=== PATIENT | female | born 1955 | race African-American/Black ===

== ENCOUNTER → 2017-01-16 | Outpatient (CLI) | payer OTHER ==
[~2017-01-16] MED LIST: ATORVASTATIN; ZOLOFT
== END | disposition home or self-care (01) ==
LOC: HKI 11:01
PROVIDERS: ATTEND Orthopaedic Surgery
DX: Z01.818 Encounter for other preprocedural examination (principal); M16.0 Bilateral primary osteoarthritis of hip; M25.551 Pain in right hip; M25.552 Pain in left hip
CPT/HCPCS: G0463

== ENCOUNTER 2017-01-19 06:13 | Inpatient (IN) | payer OTHER ==
[~2017-01-19] VITALS: Ht 157.5 cm; Wt 81.5 kg
[2017-01-19] VITALS (31 sets, daily range): BP systolic 96–138; BP diastolic 59–76; PULSE 51–76; RESP 12–28; Ht 157.5 cm; Wt 81.5 kg
[~2017-01-19 06:13] MED LIST changes: -ATORVASTATIN; +BUPIVACAINE LIPOSOME/PF 266 MG/20 ML VIAL INFIL ONE; +CEFAZOLIN 2GM/50 ML (PMX) 50 ML X1 BEFORE INCISION IVPB ONE; +CELECOXIB 400 MG PO X1 DOSE PO ONE; +LACTATED RINGER'S 1,000 ML IV SCH; +PAIN COCKTAIL-CEFUROXIME IRR ONE; +PREGABALIN 300 MG PO X1 PO ONE; +TRANEXAMIC ACID 810 MG in SOD CHLORIDE 0.9% 100 ML IVPB ONE; +TRANEXAMIC ACID 810 MG in SOD CHLORIDE 0.9% 91.9 ML IV ONE; -ZOLOFT; +oxyCODONE (CR) 10 MG TAB [oxyCONTIN] X1 DOSE PO ONE; +traMADOL 50 MG TAB X 1 DOSE PO ONE
[2017-01-19] MEDS ORDERED: PROPOFOL 100 ML ONE ×2 (06:55→11:58)
[2017-01-19] MEDS ORDERED: CEFAZOLIN 1 GM INJ ONE (06:55)
[2017-01-19] MEDS ORDERED: DEXAMETHASONE 4 MG/ML 1 ML INJ ONE (06:56)
[2017-01-19] MEDS ORDERED: FENTAnyl 50 MCG/ML VIAL ONE (06:56)
[2017-01-19] MEDS ORDERED: METOCLOPRAMIDE 10 MG INJ ONE (06:56)
[2017-01-19] MEDS ORDERED: MIDAZOLAM 1 MG/ML 2 ML INJ ONE (06:56)
--- NOTE | 2017-01-19 07:19 | HPN ---
Date/Time of Note Date/Time of Note DATE: 01/19/17 TIME: 07:18 Interval H&P Admission Note Pt. seen H&P reviewed: No system changes No change from H&P on 01/12/17 by ADDIE Clark ERIK N. MD Jan 19, 2017 07:19
[2017-01-19] MEDS ORDERED: ZOLOFT (07:48)
[2017-01-19] MEDS ORDERED: ATORVASTATIN (07:48)
[2017-01-19] MEDS ORDERED: LIDOCAINE 2% (SDV) 5 ML INJ ONE (07:55)
[2017-01-19] MEDS ORDERED: EPHEDrine SULFATE 50 MG/5 ML SYG ONE (07:55)
[2017-01-19] MEDS ORDERED: SODIUM CL BACTERIOSTATIC 30 ML INJ ONE (07:57)
[2017-01-19] MEDS ORDERED: VANCOMYCIN 1 GM INJ ONE (07:57)
[2017-01-19] MEDS ORDERED: POLYMYXIN B 500000 UNIT INJ ONE (07:57)
[2017-01-19] MEDS ORDERED: MAGNESIUM SULFATE 1 GM/D5W 100 ML ONE (08:04)
[2017-01-19] MEDS ORDERED: BACITRACIN 50000 UNITS INJ IRR ONE (08:47)
[2017-01-19] MEDS ORDERED: EXPAREL NOTE (BUPIVICAINE LIPOSOMAL) XX SCH (09:00)
--- NOTE | 2017-01-19 10:24 | OPPN ---
Date/Time of Note Date/Time of Note DATE: 01/19/17 TIME: 10:22 Operative/Procedure Note Dictation # [id number] Pre-Operative Diagnosis Left Hip OA Post-Operative Diagnosis Same Procedure Left Anterior DOREEN Surgeon: NELIA ESPARZA MD Mastic Man: RANJANA MICHAUD PA-C Anesthesiologist: GIULIANA ZHU MD Findings Severe OA Blood Usage/Administration None Implants/Grafts Depuy DOREEN Estimated blood loss: other Drains Hemovac x 1 Specimens Femoral Head Complications: None Anesthesia type: spinal NELIA ESPARZA MD Jan 19, 2017 10:24
--- NOTE | 2017-01-19 10:24 | RADRPT ---
PROCEDURE: Left hip x-rays series CLINICAL INDICATION: Arthroplasty TECHNIQUE: 13 inches obtained intraoperatively during a hip arthroplasty procedure. COMPARISON: None available FINDINGS: 13 x-ray images were obtained intraoperatively for localization during a hip hemiarthroplasty. 48 s econds of fluoroscopy time was utilized by the physician Dr. Paulino. Left total hip replacement in lelo juárez. No fracture identified IMPRESSION: 13 images and 48 seconds of fluoroscopy time views intraoperatively for localization during a left t otal hip replacement. Unremarkable left total hip replacement .Fernando Lizarraga MD, Date Time Electronically viewed and signed by .Fernando Lizarraga MD, on 01/19/2017 10:24 .B/
--- NOTE | 2017-01-19 10:25 | PN ---
Date/Time of Note Date/Time of Note DATE: 01/19/17 TIME: 10:22 Assessment/Plan Lines/Catheters IV Catheter Type (from Nrsg): Peripheral IV Assessment/Plan Assessment/Plan Stable in PACU, s/p left anterior DOREEN -continue abx -pain meds as needed -ASA/SCDs for DVT prophylaxis -continue home meds -OOB with PT -check AM labs -monitor drain -d/c pollard in AM XR of the left hip is pending at this time Subjective 24 Hr Interval Summary Doing well in PACU. Complaining of mild pain. Moving all extremities. Exam/Review of Systems Vital Signs Vitals Vital Signs Date Time Temp Pulse Resp B/P Pulse Ox O2 Delivery O2 Flow Rate FiO2 01/19/17 10:16 98.2 01/19/17 06:30 65 18 118/65 100 Exam Free Text/Dictation Dressing dry Incision clean, dry, and intact without redness or drainage 5/5 Quadriceps, Tibialis Anterior, EHL, Gastroc, Soleus, Peroneals Normal sensation Palpable DT/PT, CR <2 sec No distal edema RANJANA MICHAUD PA-C Jan 19, 2017 10:25
[2017-01-19] MEDS ORDERED: METOCLOPRAMIDE 10 MG INJ IV PRN (10:30)
[2017-01-19] MEDS ORDERED: DIPHENHYDRAMINE 50 MG INJ IV PRN (10:30)
[2017-01-19] MEDS ORDERED: ONDANSETRON 4 MG INJ IV PRN ×2 (10:30→13:00)
[2017-01-19] MEDS ORDERED: MEPERIDINE 25 MG INJ IV PRN (10:30)
[2017-01-19] MEDS ORDERED: ASPIRIN (EC) 325 MG TAB PO ONE (10:30)
[2017-01-19] MEDS ORDERED: MAGNESIUM HYDROXIDE 30ML CUP PO PRN (10:30)
[2017-01-19] MEDS ORDERED: NA PHOSPHATE/BIPHOS 133 ML ENEMA PR PRN (10:30)
[2017-01-19] MEDS ORDERED: MIDAZOLAM 1 MG/ML 2 ML INJ IV PRN (10:30)
[2017-01-19] MEDS ORDERED: BISACODYL 10 MG SUPP PR PRN (10:30)
[2017-01-19] MEDS ORDERED: NACL 0.9% 3 ML SYG IV SCH (10:30)
[2017-01-19] MEDS ORDERED: HYDROmorphONE (0.2 MG/ML) 10ML SYG IV PRN ×3 (10:30)
[2017-01-19 10:42] LABS: HEMATOCRIT 32.5 % (37.0-47.0); HEMOGLOBIN 10.3 g/dl (12.0-16.0)
[2017-01-19 10:52] LABS: CREATININE 0.77 mg/dl (0.44-1.00); POTASSIUM 4.2 mmol/L (3.5-5.1)
[2017-01-19 11:04] LABS: CALCIUM 8.7 mg/dl (8.4-10.2)
[2017-01-19] MEDS: CEFAZOLIN 2 GM/50 ML (PMX) 50 ML IVPB SCH ×2 (11:04→18:48)
--- NOTE | 2017-01-19 11:08 | OPR ---
DATE OF OPERATION: 01/19/2017 PREOPERATIVE DIAGNOSIS: Left hip osteoarthritis. POSTOPERATIVE DIAGNOSIS: Left hip osteoarthritis. OPERATION PERFORMED: Left anterior total hip arthroplasty. SURGEON: Nelia Paulino MD WIRELESS RETAIL MANAGER: ADDIE Gordon COMPONENTS USED: DePuy size 48 mm Gription Montgomery cup, 48/32 neutral AltrX polyethylene liner, size 5 high offset Actis stem, 32+1 ceramic head. ANESTHESIA: Spinal plus general endotracheal intubation plus periarticular injection. ANESTHESIOLOGIST: Dr. Lee ESTIMATED BLOOD LOSS: 400 mL. INTRAVENOUS FLUIDS: 2200 mL Crystalloid. SPECIMENS: Femoral head. DRAINS: Hemovac x1. COMPLICATIONS: None. DISPOSITION: Patient tolerated the procedure well and was taken to the recovery room in stable condition. INDICATIONS: The patient is a 61-year-old woman who has had progressive worsening pain in both hips with radiographic evidence of severe bilateral hip osteoarthritis. She has failed nonsurgical means of treatment to control her pain including activity modifications, pain medications and ambulatory assist devices. Despite these measures, she has had worsening pain and I felt she would benefit from a total hip arthroplasty through an anterior approach. The risks, benefits, and alternatives of the procedure were explained in detail to the patient. I explained the risks of the surgery to include, but not be limited to: bleeding and possible need for blood transfusion; infection; pain; stiffness; neurovascular injury with possible numbness, weakness, and/or paralysis anywhere from the hip down to the toes; fracture; instability; dislocation; leg length inequality; wear and/or loosening of the prosthesis and possible need for future revision; blood clots; pulmonary embolism; and anesthetic complications such as heart attack, stroke, GI bleed, pneumonia, and/ or . Ample time was allowed for the patient to ask questions, all of which were addressed and answered. The patient understood the risks involved and wished to proceed. Informed consent was signed prior to the procedure. PROCEDURE: The patient's left hip was initialed with a marking pen in the preoperative area to identify the correct operative site. The patient was brought to the operating room and transferred from the [facility] to the [facility] where a spinal anesthetic was administered. The patient was then anesthetized and intubated. A Lugo catheter was placed. Both feet were placed into well padded boots, which were then placed into the leg holders of the traction booms. A timeout was performed to confirm that the left side was the correct operative site. The patient was given 2 g of intravenous Ancef within one hour prior to the procedure. The operative hip was prepped and draped in the usual sterile fashion. A 10 cm oblique incision was made over the anterior aspect of the hip and carried down through subcutaneous tissue and fat with sharp dissection. The tensor fascia sedrick was incised along the length of the wound. The tensor fascia muscle was retracted laterally and the sartorius medially. The anterior circumflex vessels were identified and tied off with 2-0 silk suture and coagulated with the Tissue Link polishing wheel setter. The rectus femoris was elevated off the anterior capsule and an anterior capsulectomy performed. A femoral neck osteotomy was made and the head removed from the acetabulum. The acetabulum was denuded of cartilage circumferentially, as was the femoral head. Retractors were placed around the acetabulum. The remnants of the labrum and ligamentum teres were excised. I reamed the acetabulum to the medial wall and then went into an anatomic position and increased the reamer size in 2 mm increments until I got a good bite and was down to bleeding subchondral bone. The Montgomery cup was opened and impacted into the acetabulum and sat flush circumferentially, getting a good bite. C-arm imaging showed it had about 40 to 45 degrees of abduction and 20 degrees of anteversion. The real liner was opened and impacted into the acetabulum and sat flush circumferentially. Attention was turned towards the femur. The operative leg was carefully lowered to the floor with the leg adducted. The foot was then externally rotated to approximately 110 degrees. A posteromedial release was performed to optimize exposure. The femoral hook was placed underneath the proximal femur and the hydraulic lift was then used to elevate the femur up out of the wound. The cookie cutter osteotome was used to remove the remaining overhanging greater trochanter. The femur was then broached, going up in one size increments until it sat flush with the neck cut and a stable fit was achieved. The trial neck and head were assembled and reduced into the acetabulum. Fluoroscopic imaging showed the components to be in good position and the leg lengths and offsets to be equal. At this point, the trial was dislocated and the trial broach removed. The canal was irrigated and dried. The real stem was opened and impacted into the femur. The trunnion was irrigated and dried, and the real femoral head was impacted onto the trunnion, and reduced into the acetabulum. The soft tissues were infiltrated with a mixture of 150 mg of 0.5% Bupivacaine, 8 mg of Duramorph, 300 mcg of epinephrine, 30 mg of Toradol, 100 mcg of clonidine, 750 mg of cefuroxime and 86 mL of normal saline, followed by an injection of 266 mg of liposomal Bupivacaine. At this point the hip was irrigated with a mixture of betadine/saline and then antibiotic saline with pulsatile lavage. A Hemovac drain was placed in the deep portion of the wound and brought out the anterolateral thigh. There was good hemostasis. The tensor fascia sedrick was repaired with a running #1 Vicryl. The deep fat layer was irrigated and closed with 2-0 Stratafix and the subcutaneous layer closed with 3 -0 Vicryl and the skin was closed with alex. The drain was secured with 3-0 nylon. The sponge and needle counts were correct at the end of the case. The wound was covered with an occlusive dressing. The patient was awakened, extubated, and taken to the recovery room in stable condition. Dictated By: NELIA VELEZ/LESLIE Conf#: [id number] DID#: [id number] MTDD
--- NOTE | 2017-01-19 11:17 | RADRPT ---
PROCEDURE: XR Pelvis. CLINICAL INDICATION: Postop left hip TECHNIQUE: Single AP view of the pelvis. COMPARISON: 01/30/2017. FINDINGS: There has been placement of a left hip arthroplasty. The prosthesis is well seated, anatomically al igned and positioned. There is no radiographic evidence of loosening. There is a surgical drain la terally. There is a Lugo catheter in the urinary bladder. IMPRESSION: 1. Postop left hip surgery. No hardware complication appreciated. RPTAT:AACC Physician Benito Date Time Electronically viewed and signed by Santana Rouse Physician on 01/19/2017 11:17 /
--- NOTE | 2017-01-19 11:18 | RADRPT ---
PROCEDURE: XR Hip. CLINICAL INDICATION: Status post left hip prosthesis. Postop. Follow-up TECHNIQUE: Single AP view of the left hip was performed. COMPARISON: 01/19/2017. FINDINGS: Left hip prosthesis is identified. Alignment is anatomic. No fracture or loosening or hardware soraya lure is seen. Postsurgical changes are identified. Gas is seen within the joint space and surround ing soft tissues, as expected. There is a surgical drain present. There is a vertical line of skin alex laterally. IMPRESSION: 1. Satisfactory postop appearances, status post left hip prosthesis placement, in anatomic alignmen t. RPTAT: AACC Physician Benito Date Time Electronically viewed and signed by Physician Benito on 01/19/2017 11:18 /
[2017-01-19] MEDS: ACETAMINOPHEN 1000MG/100ML IV 100 ML IVPB SCH ×3 (12:27→23:34)
[2017-01-19] MEDS: LACTATED RINGER'S 1,000 ML IV SCH ×3 (12:27→23:34)
[2017-01-19] MEDS ORDERED: HYDROmorphONE 1 MG/ML SYG IV PRN (12:30)
[2017-01-19] MEDS ORDERED: DIPHENHYDRAMINE 25 MG CAP PO PRN (12:30)
[2017-01-19] MEDS ORDERED: oxyCODONE 5 MG TAB PO PRN (12:30)
[2017-01-19] MEDS ORDERED: TRANEXAMIC ACID 820 MG in SOD CHLORIDE 0.9% 100 ML IVPB ONE ×2 (13:30→16:30)
[2017-01-19] MEDS: traMADol 50 MG TAB PO SCH ×3 (13:35→23:34)
[2017-01-19] MEDS ORDERED: BACITRACIN 50000 UNITS INJ ONE (14:58)
--- NOTE | 2017-01-19 16:00 | CONS ---
DATE OF ADMISSION: 01/19/2017 DATE OF CONSULTATION: 01/19/2017 PHYSICIAN REQUESTING CONSULT: Dr. Germain Anderson. REASON FOR CONSULTATION: Medical management postoperatively. HISTORY OF PRESENT ILLNESS: This is a very pleasant 61-year-old -[place] female with past m edical history of depression, dyslipidemia, and left hip pain and has had progressive worsening pain in both hips with ____ evidence of severe bilateral hip osteoarthritis. The patient has failed non surgical means of treatment to control her pain including activity modification, pain medication and ambulatory assist device. Despite this measure, the patient has had worsening of the pain in her l eft and patient was seen and evaluated by orthopedic surgeon and it was felt that this patient would benefit from total hip arthroplasty. After discussing the risks and benefits of the surgery and th e treatment, the patient decided to proceed with surgical intervention. On 01/19/2017, patient was admitted to [facility] for elective left anterior total hip arthroplasty. After s igning consent, the patient was taken to OR under spinal plus general endotracheal intubation plus p eriarticular injection. The patient had a left anterior total hip arthroplasty with estimated blood loss of 400 mL ____and femoral head complications. Patient was taken to recovery room and has been admitted to med/surg for further evaluation and treatment and medical team was consulted for furthe r evaluation. At this time, the patient denies having any chest pain, shortness of breath, nausea, vomiting, diarrhea. No headache, dizziness, lightheadedness. No change in visual acuity, diplopia, photophobia. No abdominal pain. No dysuria, hematuria, urgency, incontinence or any other discomf ort. PAST MEDICAL AND SURGICAL HISTORY: 1. Depression. 2. Dyslipidemia. 3. Osteoarthritis bilateral hip. MEDICATIONS: 1. Lipitor. 2. Zoloft. ALLERGIES: 1. DIVALPROEX. 2. HALOPERIDOL. 3. PHENOBARBITAL. SOCIAL HISTORY: Positive for current daily smoker, alcohol rarely. No illicit drugs. FAMILY HISTORY: Noncontributory. REVIEW OF SYSTEMS: As above per HPI, otherwise 12 review of systems have been found to be negative. PHYSICAL EXAMINATION: VITAL SIGNS: Temperature 97.0, pulse 54, respirations 16, blood pressure 110/70, oxygen saturation 98% in room air. GENERAL APPEARANCE: The patient is lying in bed comfortably without any distress. He is awake, enrico rt, oriented. He is able to answer my questions properly. Body habitus is mildly overweight with B NJ of 32.9. EYES AND ENT: Conjunctivae and lids are normal. Pupils are normal. Extraocular normal. Hearing g rossly normal. Lips are normal. Oral mucosa is moist. NECK: Supple. Trachea is midline. No lymphadenopathy. RESPIRATORY: Respiratory effort is normal. Clear to auscultate bilaterally. CARDIOVASCULAR: Normal S1, S2. Regular rhythm and rate. No murmur, no bruits, no edema. Peripher al pulses, radial pulses palpable. Cap refill is normal. CHEST: Normal expansion of thorax during inspiration. GASTROINTESTINAL: Abdomen is soft, nontender, not distended. Bowel sounds present. No guarding, n o rebound. GENITOURINARY: Deferred. MUSCULOSKELETAL: Upper extremity within normal limits. Right lower extremity within normal limits. Left lower extremity: The patient is status post left hip arthroplasty. Surgical site is dry and clean. Drain is in place and intact. NEUROLOGIC: Cranial nerves II through XII are grossly intact. PSYCHIATRIC: She is awake, alert. LABORATORY WORK: Hemoglobin 10.3, hematocrit 32.5. ASSESSMENT AND PLAN: 1. Left hip osteoarthritis. The patient is status post left anterior total hip arthroplasty. Cont inue pain medication post-surgical care. PT, OT evaluate and treat. The patient has been placed on aspirin for deep venous thrombosis prophylaxis. 2. Dyslipidemia. Continue statin. 3. Depression. Continue Zoloft. 4. For deep venous thrombosis prophylaxis, on aspirin as per orthopedic surgery. 5. Gastrointestinal prophylaxis, on proton pump inhibitor. 6. We will continue to monitor patient closely. Further recommendations, management and treatment as per clinical course. Dictated By: KEANU SALAZAR/LESLIE Conf#: [id number] DID#: [id number]
[2017-01-19] MEDS: PANTOPRAZOLE (EC) 40 MG TAB PO SCH (17:48)
[2017-01-19] MEDS: DOCUSATE SODIUM 100 MG CAP PO SCH (20:15)
[2017-01-19] MEDS: ATORVASTATIN 10 MG TAB PO SCH (20:16)
[2017-01-20] MEDS: LACTATED RINGER'S 1,000 ML IV SCH ×2 (02:08→10:08)
[2017-01-20] MEDS: CEFAZOLIN 2 GM/50 ML (PMX) 50 ML IVPB SCH (02:38)
[2017-01-20 05:46] LABS: HEMATOCRIT 27.4 % (37.0-47.0); HEMOGLOBIN 8.7 g/dl (12.0-16.0)
[2017-01-20] MEDS: PANTOPRAZOLE (EC) 40 MG TAB PO SCH ×2 (05:56→18:19)
[2017-01-20] MEDS: traMADol 50 MG TAB PO SCH ×3 (05:56→18:19)
[2017-01-20] MEDS: ACETAMINOPHEN 1000MG/100ML IV 100 ML IVPB SCH (05:56)
[2017-01-20 05:57] LABS: CREATININE 0.82 mg/dl (0.44-1.00)
[2017-01-20 05:58] LABS: CALCIUM 8.3 mg/dl (8.4-10.2)
--- NOTE | 2017-01-20 07:28 | PDOCDIS ---
Discharge Instructions DIAGNOSIS Discharge Diagnosis: s/p left anterior DOREEN CONDITION Patient Condition: Good HOME CARE INSTRUCTIONS: Diet Instructions: Regular ACTIVITY: Activity Restrictions: Slowly Increase Activity Rest between Activity Avoid heavy lifting Do not operate Machinery Do not operate Power Tool Avoid Heavy Housework Keep Limb Elevated Bathing Restrictions: Shower FOLLOW UP/APPOINTMENTS Appointments follow up in the office on 01/30/17 OTHER ORDERS: Other Orders: S/P Anterior DOREEN Physical Therapy: Three times per week at home x 2 weeks Daily in Rehab/SNF WB STATUS: WBAT Strengthening exercises for both upper and un-operated lower extremities. 1. Gait training with front wheeled walker 2. Wide base gait, no pivot turns. 3. Abductor strengthening. 4. Quadriceps and hamstring strengthening. 5. May switch to cane in contra lateral hand 6 weeks after surgery. 6. Physical Therapy can open case if nursing is not available. 7. Ice Packs while at rest to surgical wound for 20 minutes, 3 times/day. 8. Patient requires mobile SCDs to reduce risk of developing DVT following DOREEN. Patient will use the mobile SCDs for 30 days postoperatively. Hip Precautions: No posterior hip precautions. Bathing assistance by home health aide twice weekly if Medicare patient. Occupational Therapy: Evaluation for assistive devices and ADL training. Wound Care: Keep incision dry & covered with Tegaderm until first visit with Dr. Paulino Anticoagulation Orders: Enteric Coated Aspirin 325 mg po bid x 6 weeks from date of surgery Follow-up:Call for an appointment with Dr. Paulino in 1 week after discharged from hospital at DME Orders: MARJORIE, 3-in-1 Commode, Mobile SCDs RANJANA MICHAUD PA-C Jan 20, 2017 07:27
[2017-01-20] MEDS ORDERED: ASPI325T32 PO (07:29)
[2017-01-20] MEDS ORDERED: TRAM50TA2 PO (07:29)
[2017-01-20] MEDS ORDERED: PANT40TA4 PO (07:29)
[2017-01-20] MEDS ORDERED: HYDR-906 PO (07:29)
[2017-01-20 08:06] LABS: ADD UMIC YES; URINE BILIRUBIN (Dip) NEGATIVE (NEGATIVE); URINE BLOOD (Dip) TRACE (NEGATIVE); URINE COLOR LT. YELLOW (YELLOW); URINE GLUCOSE (Dip) NEGATIVE (NEGATIVE); URINE KETONES (Dip) NEGATIVE (NEGATIVE); URINE LEUKOCYTE ESTERASE (Dip) NEGATIVE (NEGATIVE); URINE NITRITE (Dip) NEGATIVE (NEGATIVE); URINE TOTAL PROTEIN (Dip) NEGATIVE (NEGATIVE); URINE UROBILINOGEN (Dip) 0.2 E.U./dL (0.1-1.0)
[2017-01-20] MEDS: CELECOXIB 200 MG CAP PO SCH (08:27)
[2017-01-20] MEDS: DOCUSATE SODIUM 100 MG CAP PO SCH ×2 (08:27→20:17)
[2017-01-20] MEDS: SERTRALINE 50 MG TAB PO SCH (08:27)
[2017-01-20] MEDS: oxyCODONE 5 MG TAB PO PRN ×3 (08:28→17:07)
[2017-01-20] MEDS: ASPIRIN (EC) 325 MG TAB PO SCH ×2 (08:28→20:17)
[2017-01-20 08:36] VITALS: BP 111/67; RESP 16
--- NOTE | 2017-01-20 08:40 | PN ---
Date/Time of Note Date/Time of Note DATE: 01/20/17 TIME: 08:38 Assessment/Plan Lines/Catheters Lugo in Place (from Nrsg): No Assessment/Plan Assessment/Plan Stable POD #1, s/p left anterior DOREEN -d/c abx -pain meds as needed -ASA/SCDs for DVT prophylaxis -OOB with PT -check AM labs -drain removed -d/c planning. Will plan to go to [facility] upon discharge Subjective 24 Hr Interval Summary Doing well. No acute overnight events. Denies significant pain. VSS, afebrile. Would like go to to SNF upon discharge. Exam/Review of Systems Vital Signs Vitals Vital Signs Date Time Temp Pulse Resp B/P Pulse Ox O2 Delivery O2 Flow Rate FiO2 01/20/17 08:36 98.2 68 16 111/67 99 01/19/17 18:00 Nasal Cannula 2.0 Intake and Output 01/19/17 01/19/17 01/20/17 15:00 23:00 07:00 Intake Total 2616.3 ml 925 ml 2548 ml Output Total 625 ml 1580 ml 1420 ml Balance 1991.3 ml -655 ml 1128 ml Exam Free Text/Dictation Hemovac: 300cc Dressing dry Incision clean, dry, and intact without redness or drainage 5/5 Quadriceps, Tibialis Anterior, EHL, Gastroc, Soleus, Peroneals Normal sensation Palpable DT/PT, CR <2 sec No distal edema Results Result Diagram: 01/20/17 0401 01/20/17 0450 RANJANA MICHAUD PA-C Jan 20, 2017 08:39
[2017-01-20 09:08] LABS: URINE RBCS 0-2 /HPF (0)
--- NOTE | 2017-01-20 11:54 | PN ---
Date/Time of Note Date/Time of Note DATE: 01/20/17 TIME: 11:50 Assessment/Plan VTE Prophylaxis VTE Prophylaxis Intervention: other Lines/Catheters IV [facility]from [facility] Saline Lock Urinary Cath still in place: No Assessment/Plan Chief Complaint/Hosp Course ASSESSMENT AND PLAN: 1. Left hip osteoarthritis. The patient is status post left anterior total hip arthroplasty. POD #1. Continue pain medication post-surgical care. PT, OT evaluate and treat. The patient has been placed on aspirin for deep venous thrombosis prophylaxis. 2. Dyslipidemia. Continue statin. 3. Depression. Continue Zoloft. 4. Anemia. Likely postoperatively, follow up iron panel and treat accordingly 4. For deep venous thrombosis prophylaxis, on aspirin as per orthopedic surgery. 5. Gastrointestinal prophylaxis, on proton pump inhibitor. We will continue to monitor patient closely. Further recommendations, management and treatment as per clinical course. Problems: Subjective 24 Hr Interval Summary Free Text/Dictation Patient denies of any chest pain or shortness of breath Denies of having abdominal pain Minimal discomfort in left hip Exam/Review of Systems Vital Signs Vitals Vital Signs Date Time Temp Pulse Resp B/P Pulse Ox O2 Delivery O2 Flow Rate FiO2 01/20/17 08:36 98.2 68 16 111/67 99 01/19/17 18:00 Nasal Cannula 2.0 Intake and Output 01/19/17 01/19/17 01/20/17 15:00 23:00 07:00 Intake Total 2616.3 ml 925 ml 2548 ml Output Total 625 ml 1580 ml 1420 ml Balance 1991.3 ml -655 ml 1128 ml Exam General: The patient is well-developed, Not in acute distress. HEENT: Atraumatic, normocephalic. The pupils are equal and round . Neck: Supple with full range of motion. Chest: Normal expansion of the thorax during inspiration Lungs: Clear to auscultation bilaterally Heart: Normal S1-S2, Regular rhythm and rate. Abdomen: Soft , nontender, nondistended , bowel sounds are present. Extremities: Normal to inspection, no edema no cyanosis, left hip surgical site is dry and clean no evidence of hematoma Neurologic: Normal mental status,The patient is awake, alert and oriented . Results Result Diagram: 01/20/17 0401 01/20/17 0450 Results 24 hrs Laboratory Tests Test 01/20/17 04:01 01/20/17 04:17 01/20/17 04:50 Hematocrit 27.4 L Hemoglobin 8.7 L Urine Bilirubin NEGATIVE Urine Clarity CLEAR Urine Color LT. YELLOW Urine Glucose NEGATIVE Urine Hemoglobin TRACE Urine Ketones NEGATIVE Urine Leukocyte Esterase NEGATIVE Urine Microscopic RBC 0-2 Urine Microscopic WBC NONE SEEN Urine Nitrite NEGATIVE Urine Specific [place] <=1.005 L Urine Total Protein NEGATIVE Urine Urobilinogen 0.2 E.U./dL Urine pH 6.0 Anion Gap 12 Blood Urea Nitrogen 9 Calcium Level 8.3 L Carbon Dioxide Level 27 Chloride Level 106 Creatinine 0.82 Glucose Level 98 Potassium Level 4.0 Sodium Level 141 Medications Medications Current Medications Lactated Ringer's (Lr) 1,000 ml @ 125 mls/hr Q8H IV Last administered on 23:34; Admin Dose 125 MLS/HR; Start 01/19/17 at 10:08 Celecoxib 200 mg 200 mg DAILY PO Last administered on 01/20/17 08:27; Admin Dose 200 MG; Start 01/20/17 at 09:00 Acetaminophen (Ofirmev 1000mg/ 100ml Iv) 100 ml @ 400 mls/hr Q6 IVPB Last administered on 01/20/17 05:56; Admin Dose 400 MLS/HR; Start 01/19/17 at 12:00; Stop 01/20/17 at 11:59 Tramadol HCl (Ultram) 50 mg Q6 PO Last administered on 01/20/17 11:44; Admin Dose 50 MG; Start 01/19/17 at 12:00; Stop 01/22/17 at 11:59 Oxycodone HCl (Roxicodone) 5 mg Q4H PRN PO PAIN LEVEL 1-3; Start 01/19/17 at 12: 30 Oxycodone HCl (Roxicodone) 10 mg Q4H PRN PO PAIN LEVEL 4-7 Last administered on 01/20/17 08:28; Admin Dose 10 MG; Start 01/19/17 at 12:30 Hydromorphone HCl (Dilaudid) 1 mg Q3H PRN IV PAIN LEVEL 8-10 Last administered on 01/20/17 02:44; Admin Dose 1 MG; Start 01/19/17 at 12:30 Ondansetron HCl (Zofran Inj) 4 mg Q6H PRN IV NAUSEA AND/OR VOMITING; Start 01/19 at 13:00 Bisacodyl (Dulcolax Supp) 10 mg Q12H PRN CA CONSTIPATION; Start 01/19/17 at 10: 30 Magnesium Hydroxide (Milk Of Mag) 30 ml BID PRN PO CONSTIPATION; Start 01/19/17 at 10:30 Sodium Biphosphate/ Sodium Phosphate (Fleet Enema) 133 ml DAILY PRN CA CONSTIPATION; Start 01/19/17 at 10:30 Docusate Sodium (Colace) 100 mg BID PO Last administered on 01/20/17 08:27; Admin Dose 100 MG; Start 01/19/17 at 21:00 Diphenhydramine HCl (Benadryl) 25 mg Q6H PRN PO PRURITUS; Start 01/19/17 at 12: 30 Aspirin (Ecotrin) 325 mg BID PO Last administered on 01/20/17 08:28; Admin Dose 325 MG; Start 01/20/17 at 09:00 Pantoprazole (Protonix Tab) 40 mg BID@06,18 PO Last administered on 01/20/17 05:56; Admin Dose 40 MG; Start 01/19/17 at 18:00 Sertraline HCl (Zoloft) 50 mg DAILY PO Last administered on 01/20/17 08:27; Admin Dose 50 MG; Start 01/20/17 at 09:00 Atorvastatin Calcium (Lipitor) 10 mg HS PO Last administered on 01/19/17 20:16 ; Admin Dose 10 MG; Start 01/19/17 at 21:00 KEANU LIANG MD Jan 20, 2017 11:54
[2017-01-20 19:00] VITALS: BP 109/55; RESP 18
[2017-01-20] MEDS: ATORVASTATIN 10 MG TAB PO SCH (20:17)
[2017-01-21] MEDS: oxyCODONE 5 MG TAB PO PRN ×2 (00:10→07:58)
[2017-01-21 06:17] LABS: HEMATOCRIT 27.8 % (37.0-47.0); HEMOGLOBIN 8.8 g/dl (12.0-16.0)
[2017-01-21 06:24] LABS: POTASSIUM 3.9 mmol/L (3.5-5.1)
[2017-01-21 06:27] LABS: CREATININE 0.82 mg/dl (0.44-1.00)
[2017-01-21 06:28] LABS: CALCIUM 7.9 mg/dl (8.4-10.2)
[2017-01-21] MEDS: traMADol 50 MG TAB PO SCH ×5 (06:38→23:17)
[2017-01-21] MEDS: PANTOPRAZOLE (EC) 40 MG TAB PO SCH ×2 (06:38→17:56)
[2017-01-21 06:40] LABS: IRON 21 ug/dl (35-150)
[2017-01-21 06:50] LABS: TOTAL IRON BINDING CAPACITY 252 ug/dl (241-421)
[2017-01-21 08:16] VITALS: BP 111/58; RESP 18
--- NOTE | 2017-01-21 08:24 | PN ---
Date/Time of Note Date/Time of Note DATE: 01/21/17 TIME: 08:19 Assessment/Plan VTE Prophylaxis VTE Prophylaxis Intervention: ambulation, SCD's, other (Aspirin 325 mg) Lines/Catheters IV Catheter Type (from Nrsg): Saline Lock Lugo in Place (from Nrsg): No Assessment/Plan Assessment/Plan -Pain Meds as needed. Roxicodone 5 mg discontinued today. [place] 7.5/325 mg every 4 hours as needed pain to replace her oxycodone in hopes to achieve better pain control. Dr. Paulino aware and approves change. -Dress change performed today -OOB with PT -ASA/SCDs for DVT Prophylaxis -Continue monitoring with Internal Medicine -Patient Stable -Likely discharge to [facility] tomorrow. Subjective 24 Hr Interval Summary 61-year-old female postop day 2 left anterior total hip arthroplasty. Patient continues to experience discomfort/pain with movement/activity that she states can reach an 8/10 on the pain scale. Up and out of bed and walking down the hallway with assisted ambulation using front-wheeled walker. Denies any complications to the wound. Denies any calf pain, shortness of breath or chest pain/tightness. Plan is to discharge to [facility] rehab facility tomorrow. Pain Control: moderate Exam/Review of Systems Vital Signs Vitals Vital Signs Date Time Temp Pulse Resp B/P Pulse Ox O2 Delivery O2 Flow Rate FiO2 01/21/17 08:16 98.6 74 18 111/58 95 01/19/17 18:00 Nasal Cannula 2.0 Intake and Output 01/20/17 01/20/17 01/21/17 15:00 23:00 07:00 Intake Total 375 ml 1140 ml 1400 ml Output Total 1000 ml 1200 ml Balance 375 ml 140 ml 200 ml Exam Free Text/Dictation -Hemovac: Removed with wound healing well with no complications. -Incision: Clean, Dry and Intact without any redness or drainage -Thigh soft -5/5 Quadriceps, Tibialis Anterior, EHL Gastrocnemius/Soleus and Peroneals -Normal Sensation -Palpable DP/PT, Capillary Refill <2 secs -No Distal Edema -Negative Lina Sign/No calf pain -Toes Freely Movable Constitutional: alert, oriented, well developed Results Result Diagram: 01/21/17 0455 01/21/17 0455 SHANNON GARIBAY PA-C Jan 21, 2017 08:23
[2017-01-21] MEDS ORDERED: HYDROCODONE/APAP (7.5/325) TAB PO PRN (08:30)
--- NOTE | 2017-01-21 08:57 | PN ---
Date/Time of Note Date/Time of Note DATE: 01/20/17 TIME: 10:15 Anesthesi Note: A 61 enrrique female s/p left hip arthroplasty pod# 1 under GA and spinal, pain is controlled, no headache, or n/v or itching. back is clean. Assessment/Plan VTE Prophylaxis VTE Prophylaxis Intervention: SCD's Lines/Catheters IV Catheter Type (from Nrsg): Saline Lock Urinary Cath still in place: No Exam/Review of Systems Vital Signs Vitals Vital Signs Date Time Temp Pulse Resp B/P Pulse Ox O2 Delivery O2 Flow Rate FiO2 01/21/17 08:16 98.6 74 18 111/58 95 01/19/17 18:00 Nasal Cannula 2.0 Intake and Output 01/20/17 01/20/17 01/21/17 15:00 23:00 07:00 Intake Total 375 ml 1140 ml 1400 ml Output Total 1000 ml 1200 ml Balance 375 ml 140 ml 200 ml Results Result Diagram: 01/21/17 0455 01/21/17 0455 Results 24 hrs Laboratory Tests Test 01/21/17 04:55 Anion Gap 15 Blood Urea Nitrogen 10 Calcium Level 7.9 L Carbon Dioxide Level 24 Chloride Level 104 Creatinine 0.82 Ferritin 40.8 Glucose Level 84 Hematocrit 27.8 L Hemoglobin 8.8 L Iron Level 21 L Percent Iron Saturation 8 L Potassium Level 3.9 Sodium Level 139 Total Iron Binding Capacity 252 Medications Medications Current Medications Celecoxib (Celebrex) 200 mg DAILY PO Last administered on 01/20/17 08:27; Admin Dose 200 MG; Start 01/20/17 at 09:00 Tramadol HCl (Ultram) 50 mg Q6 PO Last administered on 01/21/17 06:38; Admin Dose 50 MG; Start 01/19/17 at 12:00; Stop 01/22/17 at 11:59 Oxycodone HCl (Roxicodone) 10 mg Q4H PRN PO PAIN LEVEL 4-7 Last administered on 01/21/17 07:58; Admin Dose 10 MG; Start 01/19/17 at 12:30 Hydromorphone HCl (Dilaudid) 1 mg Q3H PRN IV PAIN LEVEL 8-10 Last administered on 01/20/17 02:44; Admin Dose 1 MG; Start 01/19/17 at 12:30 Ondansetron HCl (Zofran Inj) 4 mg Q6H PRN IV NAUSEA AND/OR VOMITING; Start 01/19 at 13:00 Bisacodyl (Dulcolax Supp) 10 mg Q12H PRN [place] CONSTIPATION; Start 01/19/17 at 10: 30 Magnesium Hydroxide (Milk Of Mag) 30 ml BID PRN PO CONSTIPATION; Start 01/19/17 at 10:30 Sodium Biphosphate/ Sodium Phosphate (Fleet Enema) 133 ml DAILY PRN [place] CONSTIPATION; Start 01/19/17 at 10:30 Docusate Sodium (Colace) 100 mg BID PO Last administered on 01/20/17 20:17; Admin Dose 100 MG; Start 01/19/17 at 21:00 Diphenhydramine HCl (Benadryl) 25 mg Q6H PRN PO PRURITUS; Start 01/19/17 at 12: 30 Aspirin (Ecotrin) 325 mg BID PO Last administered on 01/20/17 20:17; Admin Dose 325 MG; Start 01/20/17 at 09:00 Pantoprazole (Protonix Tab) 40 mg BID@06,18 PO Last administered on 01/21/17 06:38; Admin Dose 40 MG; Start 01/19/17 at 18:00 Sertraline HCl (Zoloft) 50 mg DAILY PO Last administered on 01/20/17 08:27; Admin Dose 50 MG; Start 01/20/17 at 09:00 Atorvastatin Calcium (Lipitor) 10 mg HS PO Last administered on 01/20/17 20:17 ; Admin Dose 10 MG; Start 01/19/17 at 21:00 Acetaminophen/ Hydrocodone Bitart ([place] (7.5-325)) 1 tab Q4H PRN PO Pain; Start 01/21/17 at 08:30 GIULIANA ZHU MD Jan 21, 2017 08:57
[2017-01-21] MEDS: CELECOXIB 200 MG CAP PO SCH (09:01)
[2017-01-21] MEDS: DOCUSATE SODIUM 100 MG CAP PO SCH ×2 (09:02→20:22)
[2017-01-21] MEDS: ASPIRIN (EC) 325 MG TAB PO SCH ×2 (09:02→20:22)
[2017-01-21] MEDS: SERTRALINE 50 MG TAB PO SCH (09:02)
--- NOTE | 2017-01-21 10:39 | PN ---
Date/Time of Note Date/Time of Note DATE: 01/21/17 TIME: 10:37 Assessment/Plan VTE Prophylaxis VTE Prophylaxis Intervention: other Lines/Catheters IV [facility] Type [facility]from [facility] Saline Lock Urinary Cath still in place: No Assessment/Plan Chief Complaint/Hosp Course ASSESSMENT AND PLAN: 1. Left hip osteoarthritis. The patient is status post left anterior total hip arthroplasty. POD #1. Continue pain medication post-surgical care. PT, OT evaluate and treat. The patient has been placed on aspirin for deep venous thrombosis prophylaxis. 2. Dyslipidemia. Continue statin. 3. Depression. Continue Zoloft. 4. Anemia. Likely postoperatively, start iron supplementation 4. For deep venous thrombosis prophylaxis, on aspirin as per orthopedic surgery. 5. Gastrointestinal prophylaxis, on proton pump inhibitor. We will continue to monitor patient closely. Further recommendations, management and treatment as per clinical course. Patient is medically stable [facility] Disposition as per orthopedic surgeon Problems: Subjective 24 Hr Interval Summary Free Text/Dictation Denies any chest pain or shortness of breath Ambulating with minimal assist Denies of any chest pain or shortness of breath Complains of having constipation Exam/Review of Systems Vital Signs Vitals Vital Signs Date Time Temp Pulse Resp B/P Pulse Ox O2 Delivery O2 Flow Rate FiO2 01/21/17 08:16 98.6 74 18 111/58 95 01/19/17 18:00 Nasal Cannula 2.0 Intake and Output 01/20/17 01/20/17 01/21/17 15:00 23:00 07:00 Intake Total 375 ml 1140 ml 1400 ml Output Total 1000 ml 1200 ml Balance 375 ml 140 ml 200 ml Exam General: The patient is well-developed, Not in acute distress. HEENT: Atraumatic, normocephalic. The pupils are equal and round . Neck: Supple with full range of motion. Chest: Normal expansion of the thorax during inspiration Lungs: Clear to auscultation bilaterally Heart: Normal S1-S2, Regular rhythm and rate. Abdomen: Soft , nontender, nondistended , bowel sounds are present. Extremities: Normal to inspection, no edema no cyanosis, left hip surgical site is dry and clean no evidence of hematoma Neurologic: Normal mental status,The patient is awake, alert and oriented . Results Result Diagram: 01/21/17 0455 01/21/17 0455 Results 24 hrs Laboratory Tests Test 01/21/17 04:55 Anion Gap 15 Blood Urea Nitrogen 10 Calcium Level 7.9 L Carbon Dioxide Level 24 Chloride Level 104 Creatinine 0.82 Ferritin 40.8 Glucose Level 84 Hematocrit 27.8 L Hemoglobin 8.8 L Iron Level 21 L Percent Iron Saturation 8 L Potassium Level 3.9 Sodium Level 139 Total Iron Binding Capacity 252 Medications Medications Current Medications Celecoxib (Celebrex) 200 mg DAILY PO Last administered on 01/21/17 09:01; Admin Dose 200 MG; Start 01/20/17 at 09:00 Tramadol HCl (Ultram) 50 mg Q6 PO Last administered on 01/21/17 06:38; Admin Dose 50 MG; Start 01/19/17 at 12:00; Stop 01/22/17 at 11:59 Oxycodone HCl (Roxicodone) 10 mg Q4H PRN PO PAIN LEVEL 4-7 Last administered on 01/21/17 07:58; Admin Dose 10 MG; Start 01/19/17 at 12:30 Hydromorphone HCl (Dilaudid) 1 mg Q3H PRN IV PAIN LEVEL 8-10 Last administered on 01/20/17 02:44; Admin Dose 1 MG; Start 01/19/17 at 12:30 Ondansetron HCl (Zofran Inj) 4 mg Q6H PRN IV NAUSEA AND/OR VOMITING; Start 01/19 at 13:00 Bisacodyl (Dulcolax Supp) 10 mg Q12H PRN [place] CONSTIPATION; Start 01/19/17 at 10: 30 Magnesium Hydroxide (Milk Of Mag) 30 ml BID PRN PO CONSTIPATION; Start 01/19/17 at 10:30 Sodium Biphosphate/ Sodium Phosphate (Fleet Enema) 133 ml DAILY PRN [place] CONSTIPATION; Start 01/19/17 at 10:30 Docusate Sodium (Colace) 100 mg BID PO Last administered on 01/21/17 09:02; Admin Dose 100 MG; Start 01/19/17 at 21:00 Diphenhydramine HCl (Benadryl) 25 mg Q6H PRN PO PRURITUS; Start 01/19/17 at 12: 30 Aspirin (Ecotrin) 325 mg BID PO Last administered on 01/21/17 09:02; Admin Dose 325 MG; Start 01/20/17 at 09:00 Pantoprazole (Protonix Tab) 40 mg BID@06,18 PO Last administered on 01/21/17 06:38; Admin Dose 40 MG; Start 01/19/17 at 18:00 Sertraline HCl (Zoloft) 50 mg DAILY PO Last administered on 01/21/17 09:02; Admin Dose 50 MG; Start 01/20/17 at 09:00 Atorvastatin Calcium (Lipitor) 10 mg HS PO Last administered on 01/20/17 20:17 ; Admin Dose 10 MG; Start 01/19/17 at 21:00 Acetaminophen/ Hydrocodone Bitart ([place] (7.5-325)) 1 tab Q4H PRN PO Pain; Start 01/21/17 at 08:30 KEANU LIANG MD Jan 21, 2017 10:39
[2017-01-21] MEDS ORDERED: POLYETHYLENE GLYCOL 17 GM PACKET PO ONE (11:00)
[2017-01-21 20:14] VITALS: BP 86/54; RESP 20
[2017-01-21] MEDS: ATORVASTATIN 10 MG TAB PO SCH (20:22)
[2017-01-22 05:18] LABS: HEMATOCRIT 28.5 % (37.0-47.0); HEMOGLOBIN 9.1 g/dl (12.0-16.0)
[2017-01-22 05:25] LABS: POTASSIUM 4.1 mmol/L (3.5-5.1)
[2017-01-22 05:27] LABS: CREATININE 0.91 mg/dl (0.44-1.00)
[2017-01-22 05:28] LABS: CALCIUM 8.3 mg/dl (8.4-10.2)
[2017-01-22] MEDS: PANTOPRAZOLE (EC) 40 MG TAB PO SCH ×2 (05:44→17:18)
[2017-01-22] MEDS: traMADol 50 MG TAB PO SCH (05:44)
--- NOTE | 2017-01-22 08:01 | PN ---
Date/Time of Note Date/Time of Note DATE: 01/22/17 TIME: 07:56 Assessment/Plan VTE Prophylaxis VTE Prophylaxis Intervention: ambulation, SCD's, other (Aspirin 325 mg twice daily) Lines/Catheters IV Catheter Type (from Nrsg): Saline Lock Lugo in Place (from Nrsg): No Assessment/Plan Assessment/Plan -Pain Meds as needed -Dress change performed today -ASA for DVT Prophylaxis x 6 weeks outpatient discussed. -Continue monitoring as outpatient on discharge -Follow-up at scheduled postop outpatient appointment or sooner if there is any issue. -Tegaderm dressings given with specific instructions to use as outpatient to keep wound dry until alex are moved around 10 days. -Hip precautions discussed -Patient Stable [facility] to [facility]. Discussed with nurse and patient may be discharged after she has bowel movement. May trial suppository to initiate bowel movement. If unsuccessful, moved to enema. Subjective 24 Hr Interval Summary 61-year-old female postop day 3 status post left anterior total hip arthroplasty. Patient was experiencing 8/10 pain yesterday. Pain medication switched to [place] 7.5/325 mg. Patient states that her pain has improved as it is around 5/10. Up and out of bed with physical therapy. Using front wheeled walker for assisted ambulation. Denies any calf pain, shortness of breath or chest pain/tightness. Denies any complications or issues with wound. Patient reports no bowel movement since admission to hospital. Has tried MiraLAX with no success. No abdominal pain or bloating complaints. Exam/Review of Systems Vital Signs Vitals Vital Signs Date Time Temp Pulse Resp B/P Pulse Ox O2 Delivery O2 Flow Rate FiO2 01/21/17 20:14 98.1 73 20 86/54 93 01/19/17 18:00 Nasal Cannula 2.0 Intake and Output 01/21/17 01/21/17 01/22/17 15:00 23:00 07:00 Intake Total 900 ml 360 ml Output Total 600 ml 3 ml Balance 300 ml 357 ml Exam Free Text/Dictation -Hemovac: Removed -Incision: Clean, Dry and Intact without any redness or drainage -Thigh soft -4+/5 Quadriceps, Tibialis Anterior, EHL Gastrocnemius/Soleus and Peroneals -Normal Sensation -Palpable DP/PT, Capillary Refill <2 secs -No Distal Edema -Negative Lina Sign/No calf pain -Toes Freely Movable Abdomen soft and nondistended. No guarding. Constitutional: alert, oriented, well developed Results Result Diagram: 01/22/17 0425 01/22/17 0425 SHANNON GARIBAY PA-C Jan 22, 2017 08:01
[2017-01-22 08:13] VITALS: BP 92/52; RESP 16
[2017-01-22] MEDS: CELECOXIB 200 MG CAP PO SCH (08:53)
[2017-01-22] MEDS: ASPIRIN (EC) 325 MG TAB PO SCH ×2 (08:53→21:16)
[2017-01-22] MEDS: ASCORBIC ACID 500 MG TAB PO SCH (08:53)
[2017-01-22] MEDS: DOCUSATE SODIUM 100 MG CAP PO SCH ×2 (08:53→21:16)
[2017-01-22] MEDS: SERTRALINE 50 MG TAB PO SCH (08:53)
[2017-01-22] MEDS: FERROUS SULFATE (EC) 325 MG TAB PO SCH (08:53)
[2017-01-22] MEDS: oxyCODONE 5 MG TAB PO PRN ×3 (11:37→20:33)
--- NOTE | 2017-01-22 11:39 | PN ---
Date/Time of Note Date/Time of Note DATE: 01/22/17 TIME: 11:34 Assessment/Plan VTE Prophylaxis VTE Prophylaxis Intervention: other Lines/Catheters IV [facility] Saline Lock Urinary Cath still in place: No Assessment/Plan Chief Complaint/Hosp Course ASSESSMENT AND PLAN: 1. Left hip osteoarthritis. The patient is status post left anterior total hip arthroplasty. POD #1. Continue pain medication post-surgical care. PT, OT evaluate and treat. The patient has been placed on aspirin for deep venous thrombosis prophylaxis. 2. Dyslipidemia. Continue statin. 3. Depression. Continue Zoloft. 4. Anemia. Likely postoperatively, continue iron supplementation 4. For deep venous thrombosis prophylaxis, on aspirin as per orthopedic surgery. 5. Gastrointestinal prophylaxis, on proton pump inhibitor. We will continue to monitor patient closely. Further recommendations, management and treatment as per clinical course. Patient is medically stable to be discharged to [facility] facility Disposition as per orthopedic surgeon Problems: Subjective 24 Hr Interval Summary Free Text/Dictation Patient denies of any chest pain or shortness of breath No nausea vomiting diarrhea Ambulating with minimal assist Exam/Review of Systems Vital Signs Vitals Vital Signs Date Time Temp Pulse Resp B/P Pulse Ox O2 Delivery O2 Flow Rate FiO2 01/22/17 08:13 98.1 40 16 92/52 95 01/19/17 18:00 Nasal Cannula 2.0 Intake and Output 01/21/17 01/21/17 01/22/17 15:00 23:00 07:00 Intake Total 900 ml 360 ml Output Total 600 ml 3 ml Balance 300 ml 357 ml Exam General: The patient is well-developed, Not in acute distress. HEENT: Atraumatic, normocephalic. The pupils are equal and round . Neck: Supple with full range of motion. Chest: Normal expansion of the thorax during inspiration Lungs: Clear to auscultation bilaterally Heart: Normal S1-S2, Regular rhythm and rate. Abdomen: Soft , nontender, nondistended , bowel sounds are present. Extremities: Normal to inspection, no edema no cyanosis, left hip surgical site is dry and clean Neurologic: Normal mental status,The patient is awake, alert and oriented . Results Result Diagram: 01/22/17 0425 01/22/17 0425 Results 24 hrs Laboratory Tests Test 01/22/17 04:25 Anion Gap 17 H Blood Urea Nitrogen 10 Calcium Level 8.3 L Carbon Dioxide Level 27 Chloride Level 101 Creatinine 0.91 Glucose Level 113 Hematocrit 28.5 L Hemoglobin 9.1 L Potassium Level 4.1 Sodium Level 141 Medications Medications Current Medications Celecoxib (Celebrex) 200 mg DAILY PO Last administered on 01/22/17 08:53; Admin Dose 200 MG; Start 01/20/17 at 09:00 Tramadol HCl (Ultram) 50 mg Q6 PO Last administered on 01/22/17 05:44; Admin Dose 50 MG; Start 01/19/17 at 12:00; Stop 01/22/17 at 11:59 Oxycodone HCl (Roxicodone) 10 mg Q4H PRN PO PAIN LEVEL 4-7 Last administered on 01/21/17 07:58; Admin Dose 10 MG; Start 01/19/17 at 12:30 Hydromorphone HCl (Dilaudid) 1 mg Q3H PRN IV PAIN LEVEL 8-10 Last administered on 01/20/17 02:44; Admin Dose 1 MG; Start 01/19/17 at 12:30 Ondansetron HCl (Zofran Inj) 4 mg Q6H PRN IV NAUSEA AND/OR VOMITING; Start 01/19 at 13:00 Bisacodyl (Dulcolax Supp) 10 mg Q12H PRN [place] CONSTIPATION Last administered on 08:54; Admin Dose 10 MG; Start 01/19/17 at 10:30 Magnesium Hydroxide (Milk Of Mag) 30 ml BID PRN PO CONSTIPATION; Start 01/19/17 at 10:30 Sodium Biphosphate/ Sodium Phosphate (Fleet Enema) 133 ml DAILY PRN [place] CONSTIPATION; Start 01/19/17 at 10:30 Docusate Sodium (Colace) 100 mg BID PO Last administered on 01/22/17 08:53; Admin Dose 100 MG; Start 01/19/17 at 21:00 Diphenhydramine HCl (Benadryl) 25 mg Q6H PRN PO PRURITUS; Start 01/19/17 at 12: 30 Aspirin (Ecotrin) 325 mg BID PO Last administered on 01/22/17 08:53; Admin Dose 325 MG; Start 01/20/17 at 09:00 Pantoprazole (Protonix Tab) 40 mg BID@,18 PO Last administered on 01/22/17 05:44; Admin Dose 40 MG; Start 01/19/17 at 18:00 Sertraline HCl (Zoloft) 50 mg DAILY PO Last administered on 01/22/17 08:53; Admin Dose 50 MG; Start 01/20/17 at 09:00 Atorvastatin Calcium (Lipitor) 10 mg HS PO Last administered on 01/21/17 20:22 ; Admin Dose 10 MG; Start 01/19/17 at 21:00 Acetaminophen/ Hydrocodone Bitart ([place] (7.5-325)) 1 tab Q4H PRN PO Pain Last administered on 01/21/17 17:05; Admin Dose 1 TAB; Start 01/21/17 at 08:30 Ferrous Sulfate (Ferrous Sulfate (Ec)) 325 mg DAILY PO Last administered on 08:53; Admin Dose 325 MG; Start 01/22/17 at 09:00 Ascorbic Acid (Vitamin C) 500 mg DAILY PO Last administered on 01/22/17 08:53 ; Admin Dose 500 MG; Start 01/22/17 at 09:00 KEANU LIANG MD Jan 22, 2017 11:38
[2017-01-22 20:13] VITALS: BP 98/53; RESP 16
[2017-01-22] MEDS: ATORVASTATIN 10 MG TAB PO SCH (21:16)
[2017-01-23] MEDS: oxyCODONE 5 MG TAB PO PRN ×3 (03:39→16:56)
[2017-01-23 05:34] LABS: HEMATOCRIT 25.8 % (37.0-47.0); HEMOGLOBIN 8.3 g/dl (12.0-16.0)
[2017-01-23 05:54] LABS: POTASSIUM 3.7 mmol/L (3.5-5.1)
[2017-01-23 05:56] LABS: CREATININE 0.79 mg/dl (0.44-1.00)
[2017-01-23 05:57] LABS: CALCIUM 8.1 mg/dl (8.4-10.2)
[2017-01-23] MEDS: PANTOPRAZOLE (EC) 40 MG TAB PO SCH ×2 (05:58→17:52)
[2017-01-23 08:05] VITALS: BP 102/63; RESP 18
--- NOTE | 2017-01-23 08:40 | PN ---
Date/Time of Note Date/Time of Note DATE: 01/23/17 TIME: 08:39 Assessment/Plan Lines/Catheters IV Catheter Type (from Nrsg): Saline Lock Lugo in Place (from Nrsg): No Assessment/Plan Assessment/Plan Stable POD #4, s/p left anterior DOREEN -pain meds as needed -dressing changed -OOB with PT -transfer to [facility] today -follow up in the office in 1 week Subjective 24 Hr Interval Summary Doing well. No acute overnight events. Denies significant pain. Was scheduled to go to [facility] yesterday but held due to authorization. Stable for transfer to [facility] today. Exam/Review of Systems Vital Signs Vitals Vital Signs Date Time Temp Pulse Resp B/P Pulse Ox O2 Delivery O2 Flow Rate FiO2 01/23/17 08:05 99.0 68 18 102/63 98 01/19/17 18:00 Nasal Cannula 2.0 Intake and Output 01/22/17 01/22/17 01/23/17 15:00 23:00 07:00 Intake Total 760 ml 400 ml Balance 760 ml 400 ml Exam Free Text/Dictation Dressing dry Incision clean, dry, and intact without redness or drainage 5/5 Quadriceps, Tibialis Anterior, EHL, Gastroc, Soleus, Peroneals Normal sensation Palpable DT/PT, CR <2 sec No distal edema Results Result Diagram: 01/23/1742101/23/17421 RANJANA MICHAUD PA-C Jan 23, 2017 08:40
[2017-01-23] MEDS: CELECOXIB 200 MG CAP PO SCH (09:13)
[2017-01-23] MEDS: SERTRALINE 50 MG TAB PO SCH (09:13)
[2017-01-23] MEDS: FERROUS SULFATE (EC) 325 MG TAB PO SCH (09:13)
[2017-01-23] MEDS: ASCORBIC ACID 500 MG TAB PO SCH (09:13)
[2017-01-23] MEDS: DOCUSATE SODIUM 100 MG CAP PO SCH (09:13)
[2017-01-23] MEDS: ASPIRIN (EC) 325 MG TAB PO SCH (09:13)
--- NOTE | 2017-01-23 10:46 | PN ---
Date/Time of Note Date/Time of Note DATE: 01/23/17 TIME: 10:44 Assessment/Plan VTE Prophylaxis VTE Prophylaxis Intervention: other Lines/Catheters IV C[facility]ter Type (from [facility] Saline Lock Urinary Cath still in place: No Assessment/Plan Chief Complaint/Hosp Course ASSESSMENT AND PLAN: 1. Left hip osteoarthritis. The patient is status post left anterior total hip arthroplasty. POD #1. Continue pain medication post-surgical care. PT, OT evaluate and treat. The patient has been placed on aspirin for deep venous thrombosis prophylaxis. 2. Dyslipidemia. Continue statin. 3. Depression. Continue Zoloft. 4. Anemia. Likely postoperatively, continue iron supplementation 4. For deep venous thrombosis prophylaxis, on aspirin as per orthopedic surgery. 5. Gastrointestinal prophylaxis, on proton pump inhibitor. We will continue to monitor patient closely. Further recommendations, management and treatment as per clinical course. 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 patient is medically stable to be discharged to snf facility Disposition as per orthopedic surgeon Problems: Subjective 24 Hr Interval Summary Free Text/Dictation Patient denies of any chest pain or shortness of breath Denies any abdominal discomfort Ambulating with walker minimal assist Exam/Review of Systems Vital Signs Vitals Vital Signs Date Time Temp Pulse Resp B/P Pulse Ox O2 Delivery O2 Flow Rate FiO2 01/23/17 08:05 99.0 68 18 102/63 98 01/19/17 18:00 Nasal Cannula 2.0 Intake and Output 01/22/17 01/22/17 01/23/17 15:00 23:00 07:00 Intake Total 760 ml 400 ml Balance 760 ml 400 ml Exam General: The patient is well-developed, Not in acute distress. HEENT: Atraumatic, normocephalic. The pupils are equal and round . Neck: Supple with full range of motion. Chest: Normal expansion of the thorax during inspiration Lungs: Clear to auscultation bilaterally Heart: Normal S1-S2, Regular rhythm and rate. Abdomen: Soft , nontender, nondistended , bowel sounds are present. Extremities: Normal to inspection, no edema no cyanosis, surgical site is dry and clean Neurologic: Normal mental status,The patient is awake, alert and oriented . Results Result Diagram: 01/23/17 0422 01/23/17 0422 Results 24 hrs Laboratory Tests Test 01/23/17 04:22 Anion Gap 15 Blood Urea Nitrogen 11 Calcium Level 8.1 L Carbon Dioxide Level 27 Chloride Level 102 Creatinine 0.79 Glucose Level 102 Hematocrit 25.8 L Hemoglobin 8.3 L Potassium Level 3.7 Sodium Level 140 Medications Medications Current Medications Celecoxib (Celebrex) 200 mg DAILY PO Last administered on 01/23/17 09:13; Admin Dose 200 MG; Start 01/20/17 at 09:00 Oxycodone HCl (Roxicodone) 10 mg Q4H PRN PO PAIN LEVEL 4-7 Last administered on 01/23/17 09:16; Admin Dose 10 MG; Start 01/19/17 at 12:30 Hydromorphone HCl (Dilaudid) 1 mg Q3H PRN IV PAIN LEVEL 8-10 Last administered on 01/20/17 02:44; Admin Dose 1 MG; Start 01/19/17 at 12:30 Ondansetron HCl (Zofran Inj) 4 mg Q6H PRN IV NAUSEA AND/OR VOMITING; Start 01/19 at 13:00 Bisacodyl (Dulcolax Supp) 10 mg Q12H PRN [place] CONSTIPATION Last administered on 08:54; Admin Dose 10 MG; Start 01/19/17 at 10:30 Magnesium Hydroxide (Milk Of Mag) 30 ml BID PRN PO CONSTIPATION Last administered on 01/22/17 11:37; Admin Dose 30 ML; Start 01/19/17 at 10:30 Sodium Biphosphate/ Sodium Phosphate (Fleet Enema) 133 ml DAILY PRN [place] CONSTIPATION; Start 01/19/17 at 10:30 Docusate Sodium (Colace) 100 mg BID PO Last administered on 01/23/17 09:13; Admin Dose 100 MG; Start 01/19/17 at 21:00 Diphenhydramine HCl (Benadryl) 25 mg Q6H PRN PO PRURITUS; Start 01/19/17 at 12: 30 Aspirin (Ecotrin) 325 mg BID PO Last administered on 01/23/17 09:13; Admin Dose 325 MG; Start 01/20/17 at 09:00 Pantoprazole (Protonix Tab) 40 mg BID@,18 PO Last administered on 01/23/17 05:58; Admin Dose 40 MG; Start 01/19/17 at 18:00 Sertraline HCl (Zoloft) 50 mg DAILY PO Last administered on 01/23/17 09:13; Admin Dose 50 MG; Start 01/20/17 at 09:00 Atorvastatin Calcium (Lipitor) 10 mg HS PO Last administered on 01/22/17 21:16 ; Admin Dose 10 MG; Start 01/19/17 at 21:00 Acetaminophen/ Hydrocodone Bitart ([place] (7.5-325)) 1 tab Q4H PRN PO Pain Last administered on 01/21/17 17:05; Admin Dose 1 TAB; Start 01/21/17 at 08:30 Ferrous Sulfate (Ferrous Sulfate (Ec)) 325 mg DAILY PO Last administered on 09:13; Admin Dose 325 MG; Start 01/22/17 at 09:00 Ascorbic Acid (Vitamin C) 500 mg DAILY PO Last administered on 01/23/17 09:13 ; Admin Dose 500 MG; Start 01/22/17 at 09:00 KEANU LIANG MD Jan 23, 2017 10:45
--- NOTE | 2017-01-23 18:42 | DS ---
DATE OF ADMISSION: 01/19/2017 DATE OF DISCHARGE: 01/23/2017 CONDITION UPON DISCHARGE: Stable. ADMITTING DIAGNOSIS: Left hip osteoarthritis. DISCHARGE DIAGNOSIS: Status post left anterior total hip arthroplasty. PROCEDURE PERFORMED: Left anterior total hip arthroplasty. HOSPITAL COURSE: This is a 61-year-old female seen in the clinic initially complaining of left knee pain. X-rays were obtained and demonstrated advanced osteoarthritis of the left hip, and it was thought she would benefit from a left anterior total hip arthroplasty. On 01/19/2017, the patient was admitted and taken to the operating room where she underwent a left anterior total hip arthroplasty. There were no intraoperative complications. The patient tolerated the procedure well. She was started on aspirin and SCDs for DVT prophylaxis. She remained hemodynamically stable and neurovascularly intact throughout her hospital stay. She began physical therapy on postoperative day 1. She was deemed stable for discharge on postoperative day 4. Prior to transfer, the incision was inspected and noted to be clean, dry, and intact. Dressing changes were done prior to patient going to [facility] nursing [facility]. LABORATORY ANALYSIS: Hemoglobin 8.3, hematocrit 25.8. Chemistry panel was within normal limits. DISCHARGE MEDICATIONS: 1. [place] 5/325 mg. 2. Tramadol 50 mg. 3. Protonix 40 mg. 4. Aspirin 325 mg. 5. Additionally, the patient is to resume all of her normal home medications. DISCHARGE INSTRUCTIONS: The patient will be transferred to [facility] in stable condition. She is to resume a normal diet. Activity includes weightbearing as tolerated on the left lower extremity. She will begin physical therapy at the rehabilitation facility. She will be transferred with the medications noted above. Additionally, she is to resume all of her normal home medications. The patient is to call the office or go to the emergency room for any concerns including increased redness, swelling, drainage, fever, or any concerns regarding the operation or site of incision. FOLLOWUP: The patient is to follow up in the office on 01/30/2017. Dictated By: RANJANA REAL for NELIA SMALLWOOD/LESLIE Conf#: [id number] DID#: [id number] MTDNancy
== END 2017-01-23 18:20 | DRG 470 ==
LOC: REC 06:13 → MS1 12:00
PROVIDERS: ADMIT Orthopaedic Surgery; ATTEND Orthopaedic Surgery
PROC: 0SRB04A Replacement of Left Hip Joint with Ceramic on Polyethylene Synthetic Substitute, Uncemented, Open Approach (ICD-10-PCS; principal; 2017-01-19 07:00)
DX: M16.12 Unilateral primary osteoarthritis, left hip (principal); F32.9 Major depressive disorder, single episode, unspecified; E78.5 Hyperlipidemia, unspecified; F17.200 Nicotine dependence, unspecified, uncomplicated; D64.9 Anemia, unspecified
CPT/HCPCS: 72170; 73500; 73530; 80048; 81001; 81003; 82728; 83540; 85014; 85018; 86850; 86900; 86901; 86920; 87081; 87086; 88304; 88311; 97110; 97116; 97162; 97167; 97530; Z7610; C1776; C9290; J0131; J0171; J0690; J0697; J0735; J1100; J1170; J1885; J2250; J2274; J2765; J3010; J3370; J3475; J7120

== ENCOUNTER → 2017-01-30 | Outpatient (CLI) | END | disposition home or self-care (01) | DX: Z47.1 Aftercare following joint replacement surgery (principal); M16.12 Unilateral primary osteoarthritis, left hip; Z96.642 Presence of left artificial hip joint ==

== ENCOUNTER → 2017-02-27 | Outpatient (CLI) | payer OTHER ==
[~2017-02-27] MED LIST changes: +ASPI325T32 PO; +ATORVASTATIN; -BUPIVACAINE LIPOSOME/PF 266 MG/20 ML VIAL INFIL ONE; -CEFAZOLIN 2GM/50 ML (PMX) 50 ML X1 BEFORE INCISION IVPB ONE; -CELECOXIB 400 MG PO X1 DOSE PO ONE; +HYDR-906 PO; -LACTATED RINGER'S 1,000 ML IV SCH; -PAIN COCKTAIL-CEFUROXIME IRR ONE; +PANT40TA4 PO; -PREGABALIN 300 MG PO X1 PO ONE; +TRAM50TA2 PO; -TRANEXAMIC ACID 810 MG in SOD CHLORIDE 0.9% 100 ML IVPB ONE; -TRANEXAMIC ACID 810 MG in SOD CHLORIDE 0.9% 91.9 ML IV ONE; +ZOLOFT; -oxyCODONE (CR) 10 MG TAB [oxyCONTIN] X1 DOSE PO ONE; -traMADOL 50 MG TAB X 1 DOSE PO ONE
--- NOTE | 2017-02-27 17:37 | RADRPT ---
PROCEDURE: XR Left Hip and pelvis. CLINICAL INDICATION: Left hip pain. Pelvic pain. Postop. TECHNIQUE: Two views. Frontal pelvis and frontal left hip. COMPARISON: 01/19/2017. FINDINGS: There is no fracture or dislocation. The soft tissues are normal. There is a left hip total arthroplasty which appears satisfactory. There are severe degenerative changes of the right hip with joint space narrowing, osteophytes, suba rticular sclerosis, subarticular cysts, and deformity. There is no lytic or blastic lesion. The upper pelvis is not included on the image. IMPRESSION: 1. Satisfactory postoperative appearance of the left hip. 2. Severe degenerative changes of the right hip. RPTAT: QQ .Donavan Uriostegui MD, MD Date Time Electronically viewed and signed by .Donavan Uriostegui MD, on 02/27/2017 17:37 .R/
== END | disposition home or self-care (01) ==
LOC: HKI 14:51
PROVIDERS: ATTEND Orthopaedic Surgery
DX: Z47.1 Aftercare following joint replacement surgery (principal); Z96.642 Presence of left artificial hip joint; M16.11 Unilateral primary osteoarthritis, right hip; M25.551 Pain in right hip
CPT/HCPCS: 73502

== ENCOUNTER → 2017-05-22 | Outpatient (CLI) | payer OTHER ==
--- NOTE | 2017-05-22 16:48 | RADRPT ---
PROCEDURE: XR Left hip and pelvis. CLINICAL INDICATION: Left hip pain and pelvic pain. TECHNIQUE: 3 views. Frontal pelvis. Frontal and lateral left hip. COMPARISON: 02/27/2017. FINDINGS: There is no fracture or dislocation. The soft tissues are normal. There are severe degenerative changes of the right hip with joint space narrowing, osteophytes, suba rticular sclerosis, subarticular cysts, and deformity. There is a left hip total arthroplasty which appears satisfactory. There is no evidence of loosening. There is no lytic or blastic lesion. There are degenerative changes of the lower lumbar spine. IMPRESSION: 1. Severe degenerative changes of the right hip. 2. Satisfactory postoperative appearance of the left hip. RPTAT: QQ .Donavan Uriostegui MD, MD Date Time Electronically viewed and signed by .Donavan Uriostegui MD, on 05/22/2017 16:47 .R/
== END | disposition home or self-care (01) ==
LOC: HKI 13:59
PROVIDERS: ATTEND Orthopaedic Surgery
DX: Z47.1 Aftercare following joint replacement surgery (principal); Z96.642 Presence of left artificial hip joint
CPT/HCPCS: 73502; G0463

== ENCOUNTER → 2017-06-26 | Outpatient (CLI) | END | disposition home or self-care (01) | DX: M25.551 Pain in right hip (principal); M16.11 Unilateral primary osteoarthritis, right hip; Z96.642 Presence of left artificial hip joint | CPT/HCPCS: 73502; Z7500 ==

== ENCOUNTER 2017-07-01 07:11 | Inpatient (IN) | payer OTHER ==
[~2017-07-01] VITALS: Ht 157.5 cm; Wt 79.0 kg
[2017-07-01] VITALS (21 sets, daily range): BP systolic 92–139; BP diastolic 44–84; PULSE 38–74; RESP 12–20; Ht 157.5 cm; Wt 79.0 kg
[~2017-07-01 07:11] MED LIST changes: +BUPIVACAINE LIPOSOME/PF 266 MG/20 ML VIAL INFIL SCH; +CEFAZOLIN 2GM/50 ML (PMX) 50 ML X1 BEFORE INCISION IVPB SCH; +CELECOXIB 400 MG PO X1 DOSE PO SCH; +EXPAREL NOTE (BUPIVICAINE LIPOSOMAL) XX SCH; +LACTATED RINGER'S 1,000 ML IV SCH; +PAIN COCKTAIL-CEFUROXIME IRR SCH; +PREGABALIN 300 MG PO X1 PO SCH; +TRANEXAMIC ACID 770 MG in SOD CHLORIDE 0.9% 100 ML IVPB SCH; +TRANEXAMIC ACID 770 MG in SOD CHLORIDE 0.9% 92.3 ML IV SCH; +oxyCODONE (CR) 10 MG TAB [oxyCONTIN] X1 DOSE PO SCH; +traMADOL 50 MG TAB X 1 DOSE PO SCH
[2017-07-01] MEDS ORDERED: SERT20OR PO (07:57)
[2017-07-01] MEDS ORDERED: VIT1TABL65 PO (07:57)
[2017-07-01] MEDS ORDERED: TRAM50TA2 PO (07:57)
[2017-07-01] MEDS ORDERED: OXYC-282 PO (07:57)
[2017-07-01] MEDS ORDERED: BISA10SU55 RC (07:57)
[2017-07-01] MEDS ORDERED: ROCURONIUM 50 MG INJ ONE (08:30)
[2017-07-01] MEDS ORDERED: PROPOFOL 20 ML ONE (08:30)
[2017-07-01] MEDS ORDERED: GLYCOPYRROLATE 0.4 MG INJ ONE (08:30)
[2017-07-01] MEDS ORDERED: CEFAZOLIN 1 GM INJ ONE (08:30)
[2017-07-01] MEDS ORDERED: NEOSTIGMINE 3 MG/3 ML SYRINGE ONE (08:30)
[2017-07-01] MEDS ORDERED: ONDANSETRON 4 MG INJ ONE (08:31)
[2017-07-01] MEDS ORDERED: FENTAnyl 50 MCG/ML VIAL ONE (08:31)
[2017-07-01] MEDS ORDERED: ETOMIDATE 20 MG INJ ONE (08:31)
[2017-07-01] MEDS ORDERED: MIDAZOLAM 1 MG/ML 2 ML INJ ONE (08:31)
[2017-07-01] MEDS ORDERED: PROPOFOL 100 ML ONE (08:31)
[2017-07-01] MEDS ORDERED: DEXAMETHASONE 4 MG/ML 1 ML INJ ONE (08:31)
[2017-07-01] MEDS ORDERED: BACITRACIN 50000 UNITS INJ ONE ×2 (09:41→12:40)
[2017-07-01 09:56] LABS: CALCIUM 9.3 mg/dl (8.4-10.2); CREATININE 0.97 mg/dl (0.44-1.00); POTASSIUM 4.7 mmol/L (3.5-5.1)
--- NOTE | 2017-07-01 10:36 | HPN ---
Date/Time of Note Date/Time of Note DATE: 07/01/17 TIME: 10:35 Interval H&P Admission Note Pt. seen H&P reviewed: No system changes No changes from H&P on 06/29/17 by NELIA Gandhi MD Jul 01, 2017 10:36
[2017-07-01] MEDS ORDERED: POLYMYXIN B 500000 UNIT INJ ONE ×2 (10:42→12:26)
[2017-07-01] MEDS ORDERED: VANCOMYCIN 1 GM INJ ONE ×2 (10:42→12:38)
[2017-07-01] MEDS ORDERED: SODIUM CL BACTERIOSTATIC 30 ML INJ ONE ×2 (10:43→12:38)
[2017-07-01] MEDS ORDERED: MEPERIDINE 25 MG INJ IV PRN (12:30)
[2017-07-01] MEDS ORDERED: DIPHENHYDRAMINE 50 MG INJ IV PRN (12:30)
[2017-07-01] MEDS ORDERED: HYDROmorphONE (0.2 MG/ML) 10ML SYG IV PRN ×3 (12:30)
[2017-07-01] MEDS ORDERED: LABETALOL HCL 20MG INJ IV PRN (12:30)
[2017-07-01] MEDS ORDERED: IPRATROPIUM (NEB) 0.5 MG/2.5 ML AMP HHN PRN (12:30)
[2017-07-01] MEDS ORDERED: EPHEDrine SULFATE 50 MG/5 ML SYG IV PRN (12:30)
[2017-07-01] MEDS ORDERED: ONDANSETRON 4 MG INJ IV PRN ×2 (12:30→14:00)
[2017-07-01] MEDS ORDERED: TRIMETHOBENZAMIDE 100 MG/ML VIAL IM PRN (12:30)
[2017-07-01] MEDS ORDERED: FENTAnyl 50 MCG/ML VIAL IV PRN ×3 (12:30)
[2017-07-01] MEDS ORDERED: MIDAZOLAM 1 MG/ML 2 ML INJ IV PRN (12:30)
[2017-07-01] MEDS ORDERED: OXYCODONE/ACETAMINOPHEN (5/325) TAB PO PRN ×2 (12:30)
[2017-07-01] MEDS ORDERED: ALBUTEROL 0.083% (NEB) 2.5 MG/3 ML AMP HHN PRN (12:30)
[2017-07-01] MEDS ORDERED: hydrALAzine 20 MG INJ IV PRN (12:30)
[2017-07-01] MEDS ORDERED: PHENYLephrine (100 MCG/ML) 5ML SYG ONE (12:31)
[2017-07-01] MEDS ORDERED: DIPHENHYDRAMINE 25 MG CAP PO PRN (14:00)
[2017-07-01] MEDS ORDERED: NA PHOSPHATE/BIPHOS 133 ML ENEMA PR PRN (14:00)
[2017-07-01] MEDS ORDERED: BISACODYL 10 MG SUPP PR PRN (14:00)
[2017-07-01] MEDS: LACTATED RINGER'S 1,000 ML IV SCH ×2 (14:00→22:00)
[2017-07-01] MEDS ORDERED: HYDROCODONE/APAP (5/325) TAB PO PRN (14:00)
[2017-07-01] MEDS ORDERED: NACL 0.9% 3 ML SYG IV SCH (14:00)
[2017-07-01] MEDS ORDERED: ASPIRIN (EC) 325 MG TAB PO ONE (14:00)
--- NOTE | 2017-07-01 14:02 | OPR ---
Date/Time of Note Date/Time of Note DATE: 07/01/17 TIME: 14:00 Operative Report Procedure Description DATE: 07/01/2017 PREOPERATIVE DIAGNOSIS: Right hip osteoarthritis POSTOPERATIVE DIAGNOSIS: Right hip osteoarthritis OPERATION PERFORMED: Right anterior total hip arthroplasty SURGEON: Nelia Esparza MD MEDICARE SPECIALIST: Joe Gonzales PA-C COMPONENTS USED: DePuy size 50 mm Gription [place] cup, 50/32 neutral Altrex polyethylene liner, 5 standard Actis stem, 32+5 ceramic head ANESTHESIA: Spinal plus general endotracheal intubation. ANESTHESIOLOGIST: Chang Rendon M.D. ESTIMATED BLOOD LOSS: 400 cc INTRAVENOUS FLUIDS: Crystalloid 3,000 cc crystalloid. SPECIMENS: Femoral head. DRAINS: Hemovac 1 COMPLICATIONS: None. DISPOSITION: The patient tolerated the procedure well and was taken to the recovery room in stable condition. INDICATIONS: The patient is a a 62-year-old woman who has had progressively worsening pain in the right hip with radiographic evidence of severe osteoarthritis. She has failed nonsurgical means of treatment to address her pain including activity modifications, pain medications, and ambulatory assist devices. Despite these measures she has had worsening pain and I feel she will benefit from a total hip arthroplasty through an anterior approach The risks, benefits, and alternatives of the procedure were explained in detail to the patient. I explained the risks of the surgery to include, but not be limited to: bleeding and possible need for blood transfusion; infection; pain; stiffness; neurovascular injury with possible numbness, weakness, and/or paralysis anywhere from the hip down to the toes; fracture; instability; dislocation; leg length inequality; wear and/or loosening of the prosthesis and possible need for future revision; blood clots; pulmonary embolism; and anesthetic complications such as heart attack, stroke, GI bleed, pneumonia, and/ or . Ample time was allowed for the patient to ask questions, all of which were addressed and answered. The patient understood the risks involved and wished to proceed. Informed consent was signed prior to the procedure. PROCEDURE: The patient's right hip was initialed with a marking pen in the preoperative area to identify the correct operative site. The patient was brought to the operating room and transferred [facility] to the [facility] where a spinal anesthetic was administered. The patient was then anesthetized and intubated. A Lugo catheter was placed. Both feet were placed into well padded boots which were then placed into the leg holders of the traction booms. A timeout was performed to confirm that the right side was the correct operative site. The patient was given 2 g of intravenous Ancef within one hour prior to the procedure. The operative hip was prepped and draped in the usual sterile fashion. A 10 cm oblique incision was made over the anterior aspect of the hip and carried down through subcutaneous tissue and fat with sharp dissection. The tensor fascia sedrick was incised along the length of the wound. The tensor fascia muscle was retracted laterally and the sartorius medially. The anterior circumflex vessels were identified and tied off with 2-0 silk suture and coagulated with the [employer] talent program manager. The rectus femoris was elevated off the anterior capsule and an anterior capsulectomy performed. A femoral neck osteotomy was made and the head removed from the acetabulum. The acetabulum was denuded of cartilage circumferentially, as was the femoral head. Retractors were placed around the acetabulum. The remnants of the labrum and ligamentum teres were excised. I reamed the acetabulum to the medial wall and then went into an anatomic position and increased the reamer size in 2 mm increments until I got a good bite and was down to bleeding subchondral bone. The [place] cup was opened and impacted into the acetabulum and sat flush circumferentially, getting a good bite. C-arm imaging showed it had about 40 to 45 degrees of abduction and 20 degrees of anteversion. The real liner was opened and impacted into the acetabulum and sat flush circumferentially. Attention was turned towards the femur. The operative leg was carefully lowered to the floor with the leg adducted. The foot was then externally rotated to approximately 110 degrees. A posteromedial release was performed to optimize exposure. The femoral hook was placed underneath the proximal femur and the hydraulic lift was then used to elevate the femur up out of the wound. The carmina cutter osteotome was used to remove the remaining overhanging greater trochanter. The femur was then broached, going up in one size increments until it sat flush with the neck cut and a stable fit was achieved. The trial neck and head were assembled and reduced into the acetabulum. Fluoroscopic imaging showed the components to be in good position and the leg lengths and offsets to be equal. At this point, the trial was dislocated and the trial broach removed. The canal was irrigated and dried. The real stem was opened and impacted into the femur. The trunnion was irrigated and dried, and the real femoral head was impacted onto the trunnion, and reduced into the acetabulum. The soft tissues were infiltrated with a mixture of 150 mg of 0.5% Bupivacaine, 8 mg of Duramorph, 300 mcg of epinephrine, 30 mg of Toradol, 100 mcg of clonidine, 750 mg of cefuroxime and 86 mL of normal saline, followed by an injection of 266 mg of liposomal Bupivacaine. At this point the hip was irrigated with a mixture of betadine/saline and then antibiotic saline with pulsatile lavage. A Hemovac drain was placed in the deep portion of the wound and brought out the anterolateral thigh. There was good hemostasis. The tensor fascia sedrick was repaired with a running #1 Vicryl. The deep fat layer was irrigated and closed with 2-0 Stratafix and the subcutaneous layer closed with 3 -0 Vicryl and the skin was closed with alex and then sealed with Dermabond. The drain was secured with 3-0 nylon. The sponge and needle counts were correct at the end of the case. The wound was covered with an occlusive dressing. The patient was awakened, extubated, and taken to the recovery room in stable condition. NELIA ESPARZA MD Jul 01, 2017 14:02
--- NOTE | 2017-07-01 14:07 | PN ---
Date/Time of Note Date/Time of Note DATE: 07/01/17 TIME: 14:05 Assessment/Plan Assessment/Plan Assessment/Plan Stable in PACU, s/p right anterior DOREEN -continue Ancef -pain meds as needed -ASA/SCDs -OOB with PT -check AM labs -monitor drain -d/c pollard in AM XR of the right hip is pending at this time Subjective 24 Hr Interval Summary Stable in PACU. Denies pain. Moving all extremities. Exam/Review of Systems Vital Signs Vitals Vital Signs Date Time Temp Pulse Resp B/P Pulse Ox O2 Delivery O2 Flow Rate FiO2 07/01/17 07:40 97.5 54 15 109/65 100 Room Air Intake and Output 06/30/17 06/30/17 07/01/17 15:00 23:00 07:00 Intake Total 0 ml Balance 0 ml Exam Free Text/Dictation Hemovac: minimal Dressing dry Incision clean, dry, and intact without redness or drainage Thigh soft 5/5 Quadriceps, Tibialis Anterior, EHL, Gastroc, Soleus, Peroneals Normal sensation Palpable DT/PT, CR <2 sec No distal edema Results Result Diagram: 07/01/17 0845 RANJANA MICHAUD PA-C Jul 01, 2017 14:07
--- NOTE | 2017-07-01 14:21 | CONS ---
Date/Time of Note Date/Time of Note DATE: 07/01/17 TIME: 14:16 Assessment/Plan Assessment/Plan Chief Complaint/Hosp Course 1. Osteo-arthritis status post right total hip replacement postop day 0 Pain control Management per orthopedics 2. Schizophrenia disorder continue home meds PPx: Aspirin Problems: Consultation Date/Type/Reason Admit Date/Time July 01, 2017 Reason for Consultation Med management Hx of Present Illness She is 62-year-old female with a history of schizoaffective disorder, osteoarthritis and is now status post right total hip replacement. Consultation was requested for medical management. Patient has no acute complaints at this time. Constitutional: no complaints Eyes: no complaints ENT: no complaints Respiratory: no complaints Cardiovascular: no complaints Gastrointestinal: no complaints Genitourinary: no complaints Musculoskeletal: no complaints Skin: no complaints Neurologic: no complaints Endocrine: no complaints Lymphatic: no complaints Psychological: nl mood/affect, no complaints Immunologic: no complaints Past Medical History Schizo affective disorder Past Surgical History Patient states that she had a cardiac ablation, as well as laparotomy and is now status post right hip replacement Family History Significant Family History: no pertinent family hx Social History Alcohol Use: none Smoking Status: Former smoker Drug Use: other (Former cocaine user) Exam/Review of Systems Vital Signs Vitals Vital Signs Date Time Temp Pulse Resp B/P Pulse Ox O2 Delivery O2 Flow Rate FiO2 07/01/17 07:40 97.5 54 15 109/65 100 Room Air Intake and Output 06/30/17 06/30/17 07/01/17 15:00 23:00 07:00 Intake Total 0 ml Balance 0 ml Exam Constitutional: alert, oriented Head: normocephalic Respiratory: clear to auscultation Cardiovascular: regular rate and rhythm Gastrointestinal: soft, No distended Musculoskeletal: nl extremities to inspection Results Result Diagram: 07/01/17 0845 Results 24 hrs Laboratory Tests Test 07/01/17 08:45 Sodium Level 142 Potassium Level 4.7 Chloride Level 102 Carbon Dioxide Level 26 Anion Gap 19 H Blood Urea Nitrogen 18 Creatinine 0.97 Glucose Level 88 Calcium Level 9.3 Medications Medications Current Medications Lactated Ringer's (Lr) 1,000 ml @ 100 mls/hr Q10H IV Last administered on 07/01t 07:36; Admin Dose 100 MLS/HR; Start 07/01/17 at 07:00; Stop 07/01/17 at 16 :00 Oxycodone HCl (Oxycontin) 10 mg PRE-OP PO Last administered on 07/01/17 07:36 ; Admin Dose 10 MG; Start 07/01/17 at 07:00; Stop 07/01/17 at 15:00 Pregabalin (Lyrica) 300 mg PRE-OP PO Last administered on 07/01/17 07:35; Admin Dose 300 MG; Start 07/01/17 at 07:00; Stop 07/01/17 at 15:00 Celecoxib (Celebrex) 400 mg PRE-OP PO Last administered on 07/01/17 07:35; Admin Dose 400 MG; Start 07/01/17 at 07:00; Stop 07/01/17 at 15:00 Tramadol HCl 50 mg 50 mg PRE-OP PO Last administered on 07/01/17 07:36; Admin Dose 50 MG; Start 07/01/17 at 07:00; Stop 07/01/17 at 15:00 Cefazolin Sodium/ Dextrose 50 ml @ 100 mls/hr PRE-OP IVPB ; Start 07/01/17 at 07:00; Stop 07/01/17 at 15:00 Tranexamic Acid 770 mg/Sodium Chloride 100 ml @ 200 mls/hr PRE-OP IV ; Start at 07:00; Stop 07/01/17 at 15:00 Tranexamic Acid/ Sodium Chloride 107.7 ml @ 200 mls/hr INTRA-OP IVPB ; Start at 07:00; Stop 07/01/17 at 15:00 Bupivacaine HCl/ Morphine Sulfate/ Epinephrine/ Ketorolac Tromethamine/ Clonidine/Sodium Chloride/ Cefuroxime Sodium ([place] 0.5% (Sdv)/Duramorph/ EPINEPHrine/ Toradol/Duraclon/ NS/Zinacef) INTRA-OP IRR Last administered on 12:21; Admin Dose 90.3 ML; Start 07/01/17 at 07:00; Stop 07/01/17 at 15 :00 Bupivacaine Liposome (Exparel 266 Mg/ 20 ml Vial) 266 mg INTRA-OP INFIL Last administered on 07/01/17 12:22; Admin Dose 266 MG; Start 07/01/17 at 07:00; Stop 07/01/17 at 15:00 Miscellaneous Information 1 ea 1 ea NOTE XX ; Start 07/01/17 at 07:00; Stop at 07:01 Lactated Ringer's (Lr) 1,000 ml @ 125 mls/hr Q8H IV ; Start 07/01/17 at 14:00 Tramadol HCl (Ultram) 50 mg Q6 PO ; Start 07/01/17 at 12:00; Stop 07/04/17 at 11 :59 Acetaminophen/ Hydrocodone Bitart ([place] (5/325)) 1 tab Q4H PRN PO PAIN LEVEL 1 -3; Start 07/01/17 at 14:00 Acetaminophen/ Hydrocodone Bitart ([place] (5/325)) 2 tab Q4H PRN PO PAIN LEVEL 4 -7; Start 07/01/17 at 14:00 Hydromorphone HCl 1 mg 1 mg Q3H PRN IV PAIN LEVEL 8-10; Start 07/01/17 at 14:00 Cefazolin Sodium/ Dextrose (Ancef 2 Gm/50 ml (Pmx)) 50 ml @ 100 mls/hr Q8H IVPB ; Start 07/01/17 at 14:00; Stop 07/02/17 at 06:29 Ondansetron HCl (Zofran Inj) 4 mg Q6H PRN IV NAUSEA AND/OR VOMITING; Start at 14:00 Bisacodyl (Dulcolax Supp) 10 mg Q12H PRN [place] CONSTIPATION; Start 07/01/17 at 14: 00 Magnesium Hydroxide (Milk Of Mag) 30 ml BID PRN PO CONSTIPATION; Start at 14:00 Sodium Biphosphate/ Sodium Phosphate (Fleet Enema) 133 ml DAILY PRN [place] CONSTIPATION; Start 07/01/17 at 14:00 Docusate Sodium (Colace) 100 mg BID PO ; Start 07/01/17 at 21:00 Diphenhydramine HCl (Benadryl) 25 mg Q6H PRN PO PRURITUS; Start 07/01/17 at 14: 00 Aspirin (Ecotrin) 325 mg BID PO ; Start 07/02/17 at 09:00 Pantoprazole (Protonix Tab) 40 mg BID@06,18 PO ; Start 07/01/17 at 18:00 BETTY RAYO Jul 01, 2017 14:20
[2017-07-01 14:22] LABS: HEMATOCRIT 30.6 % (37.0-47.0); HEMOGLOBIN 9.5 g/dl (12.0-16.0)
[2017-07-01] MEDS: traMADol 50 MG TAB PO SCH ×3 (14:25→23:01)
[2017-07-01] MEDS: CEFAZOLIN 2 GM/50 ML (PMX) 50 ML IVPB SCH ×2 (14:26→22:50)
[2017-07-01 14:49] LABS: CALCIUM 8.3 mg/dl (8.4-10.2); CREATININE 0.87 mg/dl (0.44-1.00); POTASSIUM 3.6 mmol/L (3.5-5.1)
--- NOTE | 2017-07-01 15:32 | RADRPT ---
PROCEDURE: XR Pelvis. CLINICAL INDICATION: Pelvic pain.. Postoperative evaluation. TECHNIQUE: Single AP view of the pelvis was obtained. COMPARISON: 05/22/2017 FINDINGS: A right hip arthroplasty is seen and is without evidence of hardware loosening of lucency. A drain is seen in place. Skin alex are seen with soft tissue air. The left hip arthroplasty is unchang ed. No acute fracture or dislocation is seen. A Lugo catheter is seen. The remaining soft tissue structures are intact. IMPRESSION: Status post right hip arthroplasty with acute postoperative changes as noted above. RPTAT: HPNM Physician Rhys Date Time Electronically viewed and signed by Physician Rhys on 07/01/2017 15:31 /
--- NOTE | 2017-07-01 15:34 | RADRPT ---
PROCEDURE: XR Hip. CLINICAL INDICATION: Right hip pain. Postoperative evaluation TECHNIQUE: A single view of the right hip were obtained. COMPARISON: Pelvic film from 05/22/2017 FINDINGS: A right hip arthroplasty is seen and is without evidence of hardware loosening or lucency. Skin sta ples are seen with a drain in place. Soft tissue air is seen. A Lugo catheter is incompletely vis ualized. No acute fracture or dislocations are seen. The remaining soft tissue structures are intac t. IMPRESSION: Status post right hip arthroplasty with acute postoperative changes. RPTAT: HPNM Physician Rhys Date Time Electronically viewed and signed by Physician Rhys on 07/01/2017 15:34 /
[2017-07-01] MEDS ORDERED: TRANEXAMIC ACID 790 MG in SOD CHLORIDE 0.9% 100 ML IVPB ONE ×2 (17:00→20:00)
[2017-07-01] MEDS ORDERED: LORAZEPAM 1 MG TAB PO PRN (17:30)
[2017-07-01] MEDS: PANTOPRAZOLE (EC) 40 MG TAB PO SCH (18:47)
[2017-07-01] MEDS: DOCUSATE SODIUM 100 MG CAP PO SCH (21:00)
[2017-07-02] MEDS: HYDROmorphONE 1 MG/ML SYG IV PRN ×2 (00:45→10:07)
[2017-07-02] MEDS: LACTATED RINGER'S 1,000 ML IV SCH ×4 (00:45→22:00)
[2017-07-02] MEDS: CEFAZOLIN 2 GM/50 ML (PMX) 50 ML IVPB SCH (06:14)
[2017-07-02] MEDS: PANTOPRAZOLE (EC) 40 MG TAB PO SCH ×2 (06:14→17:38)
[2017-07-02] MEDS: traMADol 50 MG TAB PO SCH ×4 (06:15→22:55)
[2017-07-02 06:39] VITALS: BP 112/63; PULSE 58; RESP 18
[2017-07-02 07:04] LABS: HEMATOCRIT 27.6 % (37.0-47.0); HEMOGLOBIN 8.9 g/dl (12.0-16.0)
[2017-07-02 07:27] LABS: MAGNESIUM 1.9 mg/dl (1.7-2.5); PHOSPHORUS 4.6 mg/dl (2.5-4.9)
[2017-07-02 07:34] LABS: CALCIUM 9.1 mg/dl (8.4-10.2); CREATININE 0.94 mg/dl (0.44-1.00); POTASSIUM 4.9 mmol/L (3.5-5.1)
[2017-07-02 08:43] VITALS: BP 86/48; RESP 18
[2017-07-02] MEDS: DOCUSATE SODIUM 100 MG CAP PO SCH ×2 (08:48→20:15)
[2017-07-02] MEDS: ASPIRIN (EC) 325 MG TAB PO SCH ×2 (08:48→20:15)
[2017-07-02] MEDS: HYDROCODONE/APAP (5/325) TAB PO PRN (08:51)
[2017-07-02 09:06] LABS: ADD UMIC NO; UR ASCORBIC ACID NEGATIVE (NEGATIVE); UR BILIRUBIN (Dip) NEGATIVE (NEGATIVE); UR BLOOD (Dip) NEGATIVE (NEGATIVE); UR CLARITY CLEAR (CLEAR); UR COLOR STRAW (YELLOW); UR GLUCOSE (Dip) NEGATIVE (NEGATIVE); UR KETONES (Dip) NEGATIVE (NEGATIVE); UR LEUKOCYTE ESTERASE (Dip) NEGATIVE Leu/ul (NEGATIVE); UR NITRITE (Dip) NEGATIVE (NEGATIVE); UR SPECIFIC GRAVITY (Dip) 1.009 (1.003-1.030); UR TOTAL PROTEIN (Dip) NEGATIVE (NEGATIVE); UR UROBILINOGEN (Dip) NEGATIVE (NEGATIVE)
[2017-07-02 10:13] VITALS: BP 94/51; PULSE 61; RESP 16
--- NOTE | 2017-07-02 15:14 | PN ---
Date/Time of Note Date/Time of Note DATE: 07/02/17 TIME: 15:13 Assessment/Plan Lines/Catheters IV Catheter Type (from Nrsg): Peripheral IV Lugo in Place (from Nrsg): Yes Assessment/Plan Assessment/Plan POD # 1. Stable. -Drain d/c'd -OOB with PT -Pain meds -ASA/SCDs -Plan for d/c to or Monday Subjective 24 Hr Interval Summary Resting comfortably. Walked well with PT today. Exam/Review of Systems Vital Signs Vitals Vital Signs Date Time Temp Pulse Resp B/P Pulse Ox O2 Delivery O2 Flow Rate FiO2 07/02/17 10:13 61 16 94/51 98 Room Air 07/02/17 08:43 98.6 07/02/17 06:39 2.0 Intake and Output 07/01/17 07/01/17 07/02/17 15:00 23:00 07:00 Intake Total 3000 ml 450 ml 2300 ml Output Total 880 ml 200 ml 1450 ml Balance 2120 ml 250 ml 850 ml Exam Free Text/Dictation Hemovac: 130 cc Dressing dry Incision clean, dry, and intact without redness or drainage Thigh soft 5/5 Quadriceps, Tibialis Anterior, EHL, Gastroc Soleus, Peroneals Normal sensation Palpable DP/PT, CR < 2 Sec No distal edema Results Result Diagram: 07/02/1762507/02/17625 NELIA ESPARZA MD Jul 02, 2017 15:14
[2017-07-02 15:35] VITALS: BP 91/52; RESP 18
--- NOTE | 2017-07-02 19:23 | PN ---
Date/Time of Note Date/Time of Note DATE: 07/02/17 TIME: 19:21 Assessment/Plan VTE Prophylaxis VTE Prophylaxis Intervention: other Lines/Catheters IV Catheter Type (from Nrsg): Peripheral IV Assessment/Plan Chief Complaint/Hosp Course 1. Osteo-arthritis status post right total hip replacement postop day 1 Pain control Management per orthopedics 2. Schizophrenia disorder continue home meds PPx: Aspirin Problems: Subjective 24 Hr Interval Summary Constitutional: no complaints Exam/Review of Systems Vital Signs Vitals Vital Signs Date Time Temp Pulse Resp B/P Pulse Ox O2 Delivery O2 Flow Rate FiO2 07/02/17 15:35 98.6 54 18 91/52 96 07/02/17 10:13 Room Air 07/02/17 06:39 2.0 Intake and Output 07/01/17 07/01/17 07/02/17 15:00 23:00 07:00 Intake Total 3000 ml 450 ml 2300 ml Output Total 880 ml 200 ml 1450 ml Balance 2120 ml 250 ml 850 ml Exam Constitutional: alert, oriented Respiratory: clear to auscultation Cardiovascular: regular rate and rhythm Gastrointestinal: soft, No distended Musculoskeletal: nl extremities to inspection Results Result Diagram: 07/02/17 0626 07/02/17 0626 Results 24 hrs Laboratory Tests Test 07/02/17 04:00 07/02/17 06:26 Urine Color STRAW Urine Clarity CLEAR Urine pH 7.0 Urine Specific [place] 1.009 Urine Ketones NEGATIVE Urine Nitrite NEGATIVE Urine Bilirubin NEGATIVE Urine Urobilinogen NEGATIVE Urine Leukocyte Esterase NEGATIVE Urine Hemoglobin NEGATIVE Urine Glucose NEGATIVE Urine Total Protein NEGATIVE Hemoglobin 8.9 L Hematocrit 27.6 L Sodium Level 139 Potassium Level 4.9 Chloride Level 104 Carbon Dioxide Level 26 Anion Gap 14 Blood Urea Nitrogen 10 Creatinine 0.94 Glucose Level 148 Hemoglobin A1c 6.0 H Calcium Level 9.1 Phosphorus Level 4.6 Magnesium Level 1.9 Medications Medications Current Medications Miscellaneous Information 1 ea 1 ea NOTE XX ; Start 07/01/17 at 07:00; Stop at 07:01 Lactated Ringer's (Lr) 1,000 ml @ 125 mls/hr Q8H IV Last administered on t 10:10; Admin Dose 125 MLS/HR; Start 07/01/17 at 14:00 Tramadol HCl (Ultram) 50 mg Q6 PO Last administered on 07/02/17 17:37; Admin Dose 50 MG; Start 07/01/17 at 12:00; Stop 07/04/17 at 11:59 Acetaminophen/ Hydrocodone Bitart ([place] (5/325)) 1 tab Q4H PRN PO PAIN LEVEL 1 -3; Start 07/01/17 at 14:00 Acetaminophen/ Hydrocodone Bitart ([place] (5/325)) 2 tab Q4H PRN PO PAIN LEVEL 4 -7 Last administered on 07/02/17 08:51; Admin Dose 2 TAB; Start 07/01/17 at 14: 00 Hydromorphone HCl (Dilaudid) 1 mg Q3H PRN IV PAIN LEVEL 8-10 Last administered on 07/02/17 10:07; Admin Dose 1 MG; Start 07/01/17 at 14:00 Ondansetron HCl (Zofran Inj) 4 mg Q6H PRN IV NAUSEA AND/OR VOMITING; Start at 14:00 Bisacodyl (Dulcolax Supp) 10 mg Q12H PRN [place] CONSTIPATION; Start 07/01/17 at 14: 00 Magnesium Hydroxide (Milk Of Mag) 30 ml BID PRN PO CONSTIPATION; Start at 14:00 Sodium Biphosphate/ Sodium Phosphate (Fleet Enema) 133 ml DAILY PRN [place] CONSTIPATION; Start 07/01/17 at 14:00 Docusate Sodium (Colace) 100 mg BID PO Last administered on 07/02/17 08:48; Admin Dose 100 MG; Start 07/01/17 at 21:00 Diphenhydramine HCl (Benadryl) 25 mg Q6H PRN PO PRURITUS; Start 07/01/17 at 14: 00 Aspirin (Ecotrin) 325 mg BID PO Last administered on 07/02/17 08:48; Admin Dose 325 MG; Start 07/02/17 at 09:00 Pantoprazole (Protonix Tab) 40 mg BID@,18 PO Last administered on 07/02/17 17:38; Admin Dose 40 MG; Start 07/01/17 at 18:00 Lorazepam (Ativan) 1 mg Q8H PRN PO ANXIETY; Start 07/01/17 at 17:30 BETTY RAYO Jul 02, 2017 19:23
[2017-07-02 20:04] VITALS: BP 91/51; RESP 18
[2017-07-03] MEDS: HYDROCODONE/APAP (5/325) TAB PO PRN ×2 (01:56→06:13)
[2017-07-03 02:03] VITALS: BP 101/54; PULSE 69; RESP 18
[2017-07-03] MEDS: PANTOPRAZOLE (EC) 40 MG TAB PO SCH ×2 (05:01→17:39)
[2017-07-03] MEDS: traMADol 50 MG TAB PO SCH ×4 (05:01→22:56)
[2017-07-03 05:32] LABS: HEMATOCRIT 25.3 % (37.0-47.0); HEMOGLOBIN 8.2 g/dl (12.0-16.0)
[2017-07-03] MEDS: LACTATED RINGER'S 1,000 ML IV SCH ×3 (06:00→22:00)
[2017-07-03] MEDS: MAGNESIUM HYDROXIDE 30ML CUP PO PRN ×2 (06:14→14:21)
[2017-07-03 06:24] LABS: CALCIUM 8.2 mg/dl (8.4-10.2); CREATININE 0.89 mg/dl (0.44-1.00); POTASSIUM 4.4 mmol/L (3.5-5.1)
--- NOTE | 2017-07-03 07:41 | RADRPT ---
PROCEDURE: Intraoperative imaging of the right hip with fluoroscopy. CLINICAL INDICATION: Right hip pain. Intraoperative. TECHNIQUE: 10 images of the right hip were obtained in the operating room with an image intensifie r. No radiologist was in attendance. 1.0 minutes of fluoroscopy time was used. COMPARISON: 06/26/2017 FINDINGS: Images demonstrate placement of a total right hip arthroplasty. IMPRESSION: 1. Satisfactory intraoperative imaging of the right hip. RPTAT: QQ .Donavan Uriostegui MD, MD Date Time Electronically viewed and signed by .Donavan Uriostegui MD, MD on 07/03/2017 07:41 .R/
[2017-07-03 08:11] VITALS: BP 91/50; RESP 18
--- NOTE | 2017-07-03 08:46 | PN ---
Date/Time of Note Date/Time of Note DATE: 07/03/17 TIME: 08:44 Assessment/Plan Lines/Catheters IV Catheter Type (from Nrsg): Saline Lock Assessment/Plan Assessment/Plan Stable POD #2, s/p right anterior DOREEN -pain meds as needed -ASA/SCDs -OOB with PT -dressing changed -check AM labs -d/c planning to [facility] tomorrow Subjective 24 Hr Interval Summary No acute overnight events. Progressing with PT. Denies significant pain. Would like to go to [facility] tomorrow. Exam/Review of Systems Vital Signs Vitals Vital Signs Date Time Temp Pulse Resp B/P Pulse Ox O2 Delivery O2 Flow Rate FiO2 07/03/17 08:11 98.5 71 18 91/50 96 07/03/17 02:03 Room Air 07/02/17 06:39 2.0 Intake and Output 07/02/17 07/02/17 07/03/17 15:00 23:00 07:00 Intake Total 2220 ml 980 ml Output Total 1900 ml 900 ml Balance 320 ml 80 ml Exam Free Text/Dictation Dressing dry Incision clean, dry, and intact without redness or drainage 5/5 Quadriceps, Tibialis Anterior, EHL, Gastroc, Soleus, Peroneals Normal sensation Palpable DT/PT, CR <2 sec No distal edema Results Result Diagram: 07/03/17 0432 07/03/17 043 RANJANA MICHAUD PA-C Jul 03, 2017 08:45
[2017-07-03] MEDS: DOCUSATE SODIUM 100 MG CAP PO SCH ×2 (09:50→20:00)
[2017-07-03] MEDS: ASPIRIN (EC) 325 MG TAB PO SCH ×2 (09:50→20:00)
[2017-07-03] MEDS: HYDROmorphONE 1 MG/ML SYG IV PRN (14:21)
[2017-07-03 15:47] VITALS: BP 92/50; RESP 20
--- NOTE | 2017-07-03 18:45 | CONS ---
Date/Time of Note Date/Time of Note DATE: 07/03/17 TIME: 18:44 Consult Date/Type/Reason Admit Date/Time Jul 01, 2017 at 16:38 Initial Consult Date Subjective Feels well Pain is controlled Working with PT, ambulating Pending discharge tomorrow Objective Vital Signs Date Time Temp Pulse Resp B/P Pulse Ox O2 Delivery O2 Flow Rate FiO2 07/03/17 15:47 98.1 70 20 92/50 97 07/03/17 02:03 Room Air 07/02/17 06:39 2.0 Intake and Output 07/02/17 07/02/17 07/03/17 14:59 22:59 06:59 Intake Total 2220 ml 980 ml Output Total 1900 ml 900 ml Balance 320 ml 80 ml Results/Medications Result Diagram: 07/03/17 0432 07/03/17 0432 Results 24 hrs Laboratory Tests Test 07/03/17 04:32 Hemoglobin 8.2 L Hematocrit 25.3 L Sodium Level 141 Potassium Level 4.4 Chloride Level 103 Carbon Dioxide Level 26 Anion Gap 16 Blood Urea Nitrogen 11 Creatinine 0.89 Glucose Level 90 # Calcium Level 8.2 L Medications Current Medications Miscellaneous Information 1 ea 1 ea NOTE XX ; Start 07/01/17 at 07:00; Stop at 07:01 Lactated Ringer's (Lr) 1,000 ml @ 125 mls/hr Q8H IV Last administered on 10:10; Admin Dose 125 MLS/HR; Start 07/01/17 at 14:00 Tramadol HCl (Ultram) 50 mg Q6 PO Last administered on 07/03/17 17:40; Admin Dose 50 MG; Start 07/01/17 at 12:00; Stop 07/04/17 at 11:59 Acetaminophen/ Hydrocodone Bitart ([place] (5/325)) 1 tab Q4H PRN PO PAIN LEVEL 1 -3; Start 07/01/17 at 14:00 Acetaminophen/ Hydrocodone Bitart ([place] (5/325)) 2 tab Q4H PRN PO PAIN LEVEL 4 -7 Last administered on 07/03/17 06:13; Admin Dose 2 TAB; Start 07/01/17 at 14: 00 Hydromorphone HCl (Dilaudid) 1 mg Q3H PRN IV PAIN LEVEL 8-10 Last administered on 07/03/17 14:21; Admin Dose 1 MG; Start 07/01/17 at 14:00 Ondansetron HCl (Zofran Inj) 4 mg Q6H PRN IV NAUSEA AND/OR VOMITING; Start at 14:00 Bisacodyl (Dulcolax Supp) 10 mg Q12H PRN [place] CONSTIPATION; Start 07/01/17 at 14: 00 Magnesium Hydroxide (Milk Of Mag) 30 ml BID PRN PO CONSTIPATION Last administered on 07/03/17 14:21; Admin Dose 30 ML; Start 07/01/17 at 14:00 Sodium Biphosphate/ Sodium Phosphate (Fleet Enema) 133 ml DAILY PRN [place] CONSTIPATION; Start 07/01/17 at 14:00 Docusate Sodium (Colace) 100 mg BID PO Last administered on 07/03/17 09:50; Admin Dose 100 MG; Start 07/01/17 at 21:00 Diphenhydramine HCl (Benadryl) 25 mg Q6H PRN PO PRURITUS; Start 07/01/17 at 14: 00 Aspirin (Ecotrin) 325 mg BID PO Last administered on 07/03/17 09:50; Admin Dose 325 MG; Start 07/02/17 at 09:00 Pantoprazole (Protonix Tab) 40 mg BID@06,18 PO Last administered on 07/03/17 17:39; Admin Dose 40 MG; Start 07/01/17 at 18:00 Lorazepam (Ativan) 1 mg Q8H PRN PO ANXIETY; Start 07/01/17 at 17:30 Assessment/Plan Chief Complaint/Hosp Course 62 yo female wtih HLD, schizophrenia and OA s/p DOREEN 1. Osteo-arthritis status post right total hip replacement postop day 2 - Pain control - Management per orthopedics - PT/OT PPx: Aspirin, would give LMHW if no contraindication Problems: VALERIE CARUSO MD Jul 03, 2017 18:45
[2017-07-03 19:35] VITALS: BP 103/55; RESP 19
[2017-07-04 02:41] VITALS: BP 110/58; RESP 20
[2017-07-04 05:08] LABS: HEMATOCRIT 27.2 % (37.0-47.0); HEMOGLOBIN 8.8 g/dl (12.0-16.0)
[2017-07-04] MEDS: PANTOPRAZOLE (EC) 40 MG TAB PO SCH ×2 (05:17→17:53)
[2017-07-04] MEDS: traMADol 50 MG TAB PO SCH (05:18)
[2017-07-04 05:42] LABS: CALCIUM 8.4 mg/dl (8.4-10.2); CREATININE 1.05 mg/dl (0.44-1.00); POTASSIUM 4.6 mmol/L (3.5-5.1)
[2017-07-04] MEDS: LACTATED RINGER'S 1,000 ML IV SCH ×2 (05:46→14:00)
--- NOTE | 2017-07-04 07:29 | PDOCDIS ---
Discharge Instructions DIAGNOSIS Discharge Diagnosis s/p right anterior DOREEN CONDITION Patient Condition: Good HOME CARE INSTRUCTIONS: Diet Instructions: Regular ACTIVITY: Activity Restrictions: Slowly Increase Activity Rest between Activity Avoid heavy lifting Do not operate Machinery Do not operate Power Tool Avoid Heavy Housework Keep Limb Elevated Weight Bearing Bathing Restrictions: Shower FOLLOW UP/APPOINTMENTS Follow-up Plan follow up in the office on 07/12/17 RANJANA MICHAUD PA-C Jul 04, 2017 07:29
[2017-07-04] MEDS ORDERED: PANT40TA4 PO (07:30)
[2017-07-04] MEDS ORDERED: HYDR-3498 PO (07:30)
[2017-07-04] MEDS ORDERED: ASPI325T32 PO (07:30)
[2017-07-04] MEDS ORDERED: TRAM50TA2 PO (07:30)
[2017-07-04 07:54] VITALS: BP 102/54; RESP 18
[2017-07-04] MEDS: ASPIRIN (EC) 325 MG TAB PO SCH ×2 (09:27→20:22)
[2017-07-04] MEDS: DOCUSATE SODIUM 100 MG CAP PO SCH ×2 (09:27→20:22)
[2017-07-04] MEDS: HYDROCODONE/APAP (5/325) TAB PO PRN (12:25)
[2017-07-04 14:30] VITALS: BP 103/55; RESP 18
--- NOTE | 2017-07-04 17:21 | PN ---
Date/Time of Note Date/Time of Note DATE: 07/04/17 TIME: 17:19 Assessment/Plan Lines/Catheters IV Catheter Type (from Nrsg): Saline Lock Lugo in Place (from Nrsg): No Assessment/Plan Assessment/Plan Stable, POD #3, s/p right anterior DOREEN -pain meds as needed -ASA/SCDs -OOB with PT -dressing changed -check AM labs -transfer to [facility] tomorrow Subjective 24 Hr Interval Summary No acute overnight events. Denies pain. Accepted to [facility] and plan to transfer tomorrow. Exam/Review of Systems Vital Signs Vitals Vital Signs Date Time Temp Pulse Resp B/P Pulse Ox O2 Delivery O2 Flow Rate FiO2 07/04/17 07:54 98.1 72 18 102/54 93 07/03/17 02:03 Room Air 07/02/17 06:39 2.0 Intake and Output 07/03/17 07/03/17 07/04/17 14:59 22:59 06:59 Intake Total 1340 ml 1000 ml Output Total 1800 ml 950 ml Balance -460 ml 50 ml Exam Free Text/Dictation Dressing dry Incision clean, dry, and intact without redness or drainage 5/5 Quadriceps, Tibialis Anterior, EHL, Gastroc, Soleus, Peroneals Normal sensation Palpable DT/PT, CR <2 sec No distal edema Results Result Diagram: 07/04/177 07/04/177 RANJANA MICHAUD PA-C Jul 04, 2017 17:21
--- NOTE | 2017-07-04 17:36 | CONS ---
Date/Time of Note Date/Time of Note DATE: 07/04/17 TIME: 17:35 Consult Date/Type/Reason Admit Date/Time Jul 01, 2017 at 16:38 Subjective No change to clinical status Working with PT/OT. Pain controlled. Ready to be discharged to [facility] Objective Vital Signs Date Time Temp Pulse Resp B/P Pulse Ox O2 Delivery O2 Flow Rate FiO2 07/04/17 07:54 98.1 72 18 102/54 93 07/03/17 02:03 Room Air 07/02/17 06:39 2.0 Intake and Output 07/03/17 07/03/17 07/04/17 14:59 22:59 06:59 Intake Total 1340 ml 1000 ml Output Total 1800 ml 950 ml Balance -460 ml 50 ml Results/Medications Result Diagram: 07/04/17 0437 07/04/177 Results 24 hrs Laboratory Tests Test 07/04/17 04:37 Hemoglobin 8.8 L Hematocrit 27.2 L Sodium Level 136 Potassium Level 4.6 Chloride Level 100 Carbon Dioxide Level 30 Anion Gap 11 Blood Urea Nitrogen 10 Creatinine 1.05 H Glucose Level 94 Calcium Level 8.4 Medications Current Medications Lactated Ringer's (Lr) 1,000 ml @ 125 mls/hr Q8H IV Last administered on 10:10; Admin Dose 125 MLS/HR; Start 07/01/17 at 14:00 Acetaminophen/ Hydrocodone Bitart ([place] (5/325)) 1 tab Q4H PRN PO PAIN LEVEL 1 -3; Start 07/01/17 at 14:00 Acetaminophen/ Hydrocodone Bitart ([place] (5/325)) 2 tab Q4H PRN PO PAIN LEVEL 4 -7 Last administered on 07/04/17 12:25; Admin Dose 2 TAB; Start 07/01/17 at 14: 00 Hydromorphone HCl (Dilaudid) 1 mg Q3H PRN IV PAIN LEVEL 8-10 Last administered on 07/03/17 14:21; Admin Dose 1 MG; Start 07/01/17 at 14:00 Ondansetron HCl (Zofran Inj) 4 mg Q6H PRN IV NAUSEA AND/OR VOMITING; Start at 14:00 Bisacodyl (Dulcolax Supp) 10 mg Q12H PRN [place] CONSTIPATION; Start 07/01/17 at 14: 00 Magnesium Hydroxide (Milk Of Mag) 30 ml BID PRN PO CONSTIPATION Last administered on 07/03/17 14:21; Admin Dose 30 ML; Start 07/01/17 at 14:00 Sodium Biphosphate/ Sodium Phosphate (Fleet Enema) 133 ml DAILY PRN [place] CONSTIPATION; Start 07/01/17 at 14:00 Docusate Sodium (Colace) 100 mg BID PO Last administered on 07/04/17 09:27; Admin Dose 100 MG; Start 07/01/17 at 21:00 Diphenhydramine HCl (Benadryl) 25 mg Q6H PRN PO PRURITUS; Start 07/01/17 at 14: 00 Aspirin (Ecotrin) 325 mg BID PO Last administered on 07/04/17 09:27; Admin Dose 325 MG; Start 07/02/17 at 09:00 Pantoprazole (Protonix Tab) 40 mg BID@06,18 PO Last administered on 07/04/17 05:17; Admin Dose 40 MG; Start 07/01/17 at 18:00 Lorazepam (Ativan) 1 mg Q8H PRN PO ANXIETY; Start 07/01/17 at 17:30 Assessment/Plan Chief Complaint/Hosp Course 62 yo female wtih HLD, schizophrenia and OA s/p DOREEN 1. Osteo-arthritis status post right total hip replacement postop day 2 - Pain control - Management per orthopedics - PT/OT PPx: Aspirin, would recommend LMHW instead if no contraindication Problems: VALERIE CARUSO MD Jul 04, 2017 17:35
[2017-07-04 19:40] VITALS: BP 90/53; RESP 18
[2017-07-05] MEDS: HYDROCODONE/APAP (5/325) TAB PO PRN ×5 (01:20→21:20)
[2017-07-05 02:00] VITALS: BP 102/51; RESP 18
[2017-07-05] MEDS: PANTOPRAZOLE (EC) 40 MG TAB PO SCH ×2 (05:06→17:31)
[2017-07-05 05:28] LABS: BASOPHILS % 0.4 % (0.0-2.0); EOSINOPHILS # 0.1 10^3/ul (0.0-0.5); EOSINOPHILS % 0.8 % (0.0-7.0); HEMATOCRIT 27.4 % (37.0-47.0); HEMOGLOBIN 8.9 g/dl (12.0-16.0); LYMPHOCYTES # 2.3 10^3/ul (0.8-2.9); LYMPHOCYTES % 29.4 % (15.0-51.0); MEAN CORPUSCULAR HEMOGLOBIN 28.8 pg (29.0-33.0); MEAN CORPUSCULAR HGB CONC 32.5 g/dl (32.0-37.0); MEAN CORPUSCULAR VOLUME 88.7 fl (82.0-101.0); MEAN PLATELET VOLUME 10.4 fl (7.4-10.4); MONOCYTE # 0.4 10^3/ul (0.3-0.9); MONOCYTES % 5.4 % (0.0-11.0); NEUTROPHILS % 63.7 % (39.0-77.0); PLATELET COUNT 208 10^3/UL (140-415); RED BLOOD COUNT 3.09 10^6/ul (4.20-5.40); RED CELL DISTRIBUTION WIDTH 16.1 % (11.5-14.5); WHITE BLOOD COUNT 7.9 10^3/ul (4.8-10.8)
[2017-07-05 06:41] LABS: CALCIUM 8.4 mg/dl (8.4-10.2); CREATININE 0.97 mg/dl (0.44-1.00); POTASSIUM 4.1 mmol/L (3.5-5.1)
[2017-07-05 06:55] LABS: IRON 28 ug/dl (35-150)
[2017-07-05 07:05] LABS: TOTAL IRON BINDING CAPACITY 242 ug/dl (241-421)
--- NOTE | 2017-07-05 07:49 | DS ---
Date/Time of Note Date/Time of Note DATE: 07/05/17 TIME: 07:47 Discharge Summary Admission/Discharge Info Admit Date/Time Jul 01, 2017 at 16:38 Discharge Date/Time 07/05/2017 Discharge Diagnosis s/p right anterior DOREEN Patient Condition: Good Procedures Right anterior total hip arthroplasty Hospital Course This is a 62-year-old female, who was seen in the clinic initially complaining of right hip pain. X-rays demonstrated advanced osteoarthritis of the right hip , thought she would benefit from right anterior total hip arthroplasty. On 07/01, the patient was admitted and taken to the operating room, where she underwent a right anterior total hip arthroplasty. There were no intraoperative complications. The patient tolerated the procedure well. She was taken to the recovery room in stable condition. Pain was well-controlled oral pain medication. She was started on aspirin and SCDs for DVT prophylaxis. She remained hemodynamically stable and neurovascularly intact throughout her hospital stay. She began physical therapy on postoperative day 0, and continued to make good progress. Ultimately she was deemed stable for transfer to an [facility] on postoperative day 4. Prior to transfer, the incision was inspected and noted to be clean, dry, and intact. Dressing changes were done prior to patient being transferred. Discharge instructions: The patient will be transferred to an [facility] nursing facility in stable condition. She is to resume a normal diet. She is weightbearing as tolerated on the right lower extremity. She will continue physical therapy twice daily at the senior care facility. She will be discharged and transferred with a medication noted, and is to resume all of her normal home medication. The patient is to call the office or go to emergency room for any concerns including increased redness, swelling, drainage, fever, or any concerns regarding the operation or site of incision. Home Meds Active Scripts Hydrocodone/Acetaminophen ([place] 5-325 Tablet) 1 Each Tablet, 1 EACH PO Q6 for PAIN LEVEL 6-10, #60 TAB Prov:RANJANA MICHAUD PA-C 01/20/17 Tramadol HCl (Tramadol HCl) 50 Mg Tablet, 50 MG PO Q6 for 30 Days, #60 TAB Prov:RANJANA MICHAUD PA-C 01/20/17 Pantoprazole* (Pantoprazole*) 40 Mg Tablet.dr, 40 MG PO BID@06,18 for 40 Days, # 40 Prov:RANJANA MICHAUD PA-C 01/20/17 Aspirin (Aspir-Cheryle) 325 Mg Tablet.dr, 325 MG PO BID for 42 Days, #84 Prov:RANJANA MICHAUD PA-C 01/20/17 Reported Medications Oxycodone HCl/Acetaminophen (Percocet 2.5-325 mg Tablet) 1 Each Tablet, 1 EACH PO, TAB 07/01/17 Bisacodyl (Dulcolax) 10 Mg Supp.rect, 10 MG RC, SUPP.RECT 07/01/17 Vit D3 & K/[place] Hcl/Hops (Ostera Tablet) 1 Each Tablet, 1 EACH PO, TAB 07/01/17 Sertraline HCl (Zoloft) 20 Mg/1 Ml Oral.conc, 20 MG PO 07/01/17 Tramadol HCl (Tramadol HCl) 50 Mg Tablet, 50 MG PO Q6 Y for PAIN, #120 TAB 07/01/17 [Zoloft] No Conflict Check 01/19/17 [Atorvastatin] No Conflict Check 01/19/17 Follow-up Plan Follow-up in the office on 07/12/2017 Primary Care Provider Tera Hunt Pending Labs Laboratory Tests Test 07/05/17 04:50 White Blood Count 7.910^3/ul (4.8-10.8) Red Blood Count 3.0910^6/ul (4.20-5.40) Hemoglobin 8.9g/dl (12.0-16.0) Hematocrit 27.4% (37.0-47.0) Mean Corpuscular Volume 88.7fl (82.0-101.0) Mean Corpuscular Hemoglobin 28.8pg (29.0-33.0) Mean Corpuscular Hemoglobin Concent 32.5g/dl (32.0-37.0) Red Cell Distribution Width 16.1% (11.5-14.5) Platelet Count 09722^3/UL (140-415) Mean Platelet Volume 10.4fl (7.4-10.4) Neutrophils % 63.7% (39.0-77.0) Lymphocytes % 29.4% (15.0-51.0) Monocytes % 5.4% (0.0-11.0) Eosinophils % 0.8% (0.0-7.0) Basophils % 0.4% (0.0-2.0) Nucleated Red Blood Cells % 0.0/100WBC (0.0-0.0) Neutrophils # (Manual) 510^3/ul (1.7-7.5) Lymphocytes # 2.310^3/ul (0.8-2.9) Monocytes # 0.410^3/ul (0.3-0.9) Eosinophils # 0.110^3/ul (0.0-0.5) Basophils # 0.010^3/ul (0.0-0.1) Nucleated Red Blood Cells # 0.010^3/ul (0.0-0.0) Sodium Level 136mmol/L (135-144) Potassium Level 4.1mmol/L (3.5-5.1) Chloride Level 101mmol/L (97-110) Carbon Dioxide Level 29mmol/L (21-31) Anion Gap 10 (8-16) Blood Urea Nitrogen 11mg/dl (7-20) Creatinine 0.97mg/dl (0.44-1.00) Glucose Level 113mg/dl (70-220) Calcium Level 8.4mg/dl (8.4-10.2) Iron Level 28ug/dl (35-150) Total Iron Binding Capacity 242ug/dl (241-421) Percent Iron Saturation 12% SAT (22-52) Ferritin 21.0ng/ml (11.1-264.0) RANJANA MICHAUD PA-C Jul 05, 2017 07:49
[2017-07-05 08:00] VITALS: BP 92/55; RESP 18
[2017-07-05] MEDS: DOCUSATE SODIUM 100 MG CAP PO SCH ×2 (08:13→21:18)
[2017-07-05] MEDS: ASPIRIN (EC) 325 MG TAB PO SCH ×2 (08:14→21:18)
--- NOTE | 2017-07-05 08:49 | PN ---
Date/Time of Note Date/Time of Note DATE: 07/05/17 TIME: 08:48 Assessment/Plan Lines/Catheters IV Catheter Type (from Nrsg): Saline Lock Lugo in Place (from Nrsg): No Assessment/Plan Assessment/Plan Stable POD #4, s/p right anterior DOREEN -pain meds as needed -ASA/SCDs -OOB with PT -dressing changed -transfer to [facility] -follow up in the office in 1 week Subjective 24 Hr Interval Summary No acute overnight events. Denies significant pain. VSS, afebrile. Stable for transfer to [facility] today. Exam/Review of Systems Vital Signs Vitals Vital Signs Date Time Temp Pulse Resp B/P Pulse Ox O2 Delivery O2 Flow Rate FiO2 07/06/17 07:50 98.0 71 18 111/73 100 07/03/17 02:03 Room Air Intake and Output 07/05/17 07/05/17 07/06/17 15:00 23:00 07:00 Intake Total 680 ml 960 ml Balance 680 ml 960 ml Exam Free Text/Dictation Dressing dry Incision clean, dry, and intact without redness or drainage 5/5 Quadriceps, Tibialis Anterior, EHL, Gastroc, Soleus, Peroneals Normal sensation Palpable DT/PT, CR <2 sec No distal edema Results Result Diagram: 07/06/1744907/06/17449 RANJANA MICHAUD PA-C Jul 05, 2017 08:49 15:00 23:00 07:00 Intake Total 920 ml 1050 ml Balance 920 ml 1050 ml Exam Free Text/Dictation Dressing dry Incision clean, dry, and intact without redness or drainage 5/5 Quadriceps, Tibialis Anterior, EHL, Gastroc, Soleus, Peroneals Normal sensation Palpable DT/PT, CR <2 sec No distal edema Results Result Diagram: 07/05/1744907/05/17449 RANJANA MICHAUD PA-C Jul 05, 2017 08:49
[2017-07-05 13:18] VITALS: BP 97/54; RESP 18
--- NOTE | 2017-07-05 13:43 | PN ---
Date/Time of Note Date/Time of Note DATE: 07/05/17 TIME: 13:41 Assessment/Plan VTE Prophylaxis VTE Prophylaxis Intervention: LMWH Lines/Catheters IV Catheter Type (from Nrs): Saline Lock Urinary Cath still in place: No Assessment/Plan Assessment/Plan 1. Osteo-arthritis status post right total hip replacement, stable, follow up with ortho 2. Anemia, no active bleeding, follow up with PCP Subjective 24 Hr Interval Summary Free Text/Dictation pain is controlled. afebrile Exam/Review of Systems Vital Signs Vitals Vital Signs Date Time Temp Pulse Resp B/P Pulse Ox O2 Delivery O2 Flow Rate FiO2 07/05/17 13:18 98.6 60 18 97/54 96 07/03/17 02:03 Room Air 07/02/17 06:39 2.0 Intake and Output 07/04/17 07/04/17 07/05/17 15:00 23:00 07:00 Intake Total 920 ml 1050 ml Balance 920 ml 1050 ml Exam Constitutional: alert, oriented, well developed Psych: nl mood/affect, no complaints Head: atraumatic, normocephalic Eyes: EOMI, PERRL, nl conjunctiva, nl lids ENMT: nl external ears & nose, nl lips & teeth, nl nasal mucosa & septum Neck: non-tender, supple Respiratory: clear to auscultation, normal air movement Cardiovascular: nl pulses, regular rate and rhythm, No S3, No S4, No bruits, No diastolic murmur, No edema, No gallop, No irregular rhythm, No jugular venous distention (JVD), No murmurs/extra sounds, No other, No rub, No systolic murmur Gastrointestinal: nl liver, spleen, non-tender, soft, No ascites, No bowel sounds, No distended, No firm, No hepatomegaly, No mass , No other, No rebound or guarding, No splenomegaly, No surgical scars, No tender Extremities: normal pulses, other (right hip no bleeding or hematoma) 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, nl mental status, nl speech, nl strength Skin: nl turgor Results Result Diagram: 07/05/17 0450 07/05/17 0450 Results 24 hrs Laboratory Tests Test 07/05/17 04:50 White Blood Count 7.9 Red Blood Count 3.09 L Hemoglobin 8.9 L Hematocrit 27.4 L Mean Corpuscular Volume 88.7 Mean Corpuscular Hemoglobin 28.8 L Mean Corpuscular Hemoglobin Concent 32.5 Red Cell Distribution Width 16.1 H Platelet Count 208 Mean Platelet Volume 10.4 Neutrophils % 63.7 Lymphocytes % 29.4 Monocytes % 5.4 Eosinophils % 0.8 Basophils % 0.4 Nucleated Red Blood Cells % 0.0 Neutrophils # (Manual) 5 Lymphocytes # 2.3 Monocytes # 0.4 Eosinophils # 0.1 Basophils # 0.0 Nucleated Red Blood Cells # 0.0 Sodium Level 136 Potassium Level 4.1 Chloride Level 101 Carbon Dioxide Level 29 Anion Gap 10 Blood Urea Nitrogen 11 Creatinine 0.97 Glucose Level 113 Calcium Level 8.4 Iron Level 28 L Total Iron Binding Capacity 242 Percent Iron Saturation 12 L Ferritin 21.0 Medications Medications Current Medications Acetaminophen/ Hydrocodone Bitart ([place] (5/325)) 1 tab Q4H PRN PO PAIN LEVEL 1 -3; Start 07/01/17 at 14:00 Acetaminophen/ Hydrocodone Bitart ([place] (5/325)) 2 tab Q4H PRN PO PAIN LEVEL 4 -7 Last administered on 07/05/17 11:40; Admin Dose 2 TAB; Start 07/01/17 at 14: 00 Hydromorphone HCl (Dilaudid) 1 mg Q3H PRN IV PAIN LEVEL 8-10 Last administered on 07/03/17 14:21; Admin Dose 1 MG; Start 07/01/17 at 14:00 Ondansetron HCl (Zofran Inj) 4 mg Q6H PRN IV NAUSEA AND/OR VOMITING; Start at 14:00 Bisacodyl (Dulcolax Supp) 10 mg Q12H PRN [place] CONSTIPATION; Start 07/01/17 at 14: 00 Magnesium Hydroxide (Milk Of Mag) 30 ml BID PRN PO CONSTIPATION Last administered on 07/03/17 14:21; Admin Dose 30 ML; Start 07/01/17 at 14:00 Sodium Biphosphate/ Sodium Phosphate (Fleet Enema) 133 ml DAILY PRN [place] CONSTIPATION; Start 07/01/17 at 14:00 Docusate Sodium (Colace) 100 mg BID PO Last administered on 07/05/17 08:13; Admin Dose 100 MG; Start 07/01/17 at 21:00 Diphenhydramine HCl (Benadryl) 25 mg Q6H PRN PO PRURITUS; Start 07/01/17 at 14: 00 Aspirin (Ecotrin) 325 mg BID PO Last administered on 07/05/17 08:14; Admin Dose 325 MG; Start 07/02/17 at 09:00 Pantoprazole (Protonix Tab) 40 mg BID@06,18 PO Last administered on 07/05/17 05:06; Admin Dose 40 MG; Start 07/01/17 at 18:00 Lorazepam (Ativan) 1 mg Q8H PRN PO ANXIETY; Start 07/01/17 at 17:30 FARHAN HODGE MD Jul 05, 2017 13:43
[2017-07-05 19:25] VITALS: BP 100/55; RESP 18
[2017-07-06 02:30] VITALS: BP 101/55; RESP 18
[2017-07-06 05:29] LABS: HEMATOCRIT 26.9 % (37.0-47.0); HEMOGLOBIN 8.7 g/dl (12.0-16.0)
[2017-07-06] MEDS: PANTOPRAZOLE (EC) 40 MG TAB PO SCH ×2 (05:36→17:14)
[2017-07-06] MEDS: MAGNESIUM HYDROXIDE 30ML CUP PO PRN (05:42)
[2017-07-06 05:53] LABS: CALCIUM 8.6 mg/dl (8.4-10.2); CREATININE 0.89 mg/dl (0.44-1.00); POTASSIUM 4.2 mmol/L (3.5-5.1)
[2017-07-06] MEDS: HYDROCODONE/APAP (5/325) TAB PO PRN ×2 (07:28→16:23)
[2017-07-06 07:50] VITALS: BP 111/73; RESP 18
[2017-07-06] MEDS: DOCUSATE SODIUM 100 MG CAP PO SCH (08:12)
[2017-07-06] MEDS: ASPIRIN (EC) 325 MG TAB PO SCH (08:12)
--- NOTE | 2017-07-06 10:59 | PN ---
Date/Time of Note Date/Time of Note DATE: 07/06/17 TIME: 10:58 Assessment/Plan Lines/Catheters IV Catheter Type (from Nrsg): Saline Lock Lugo in Place (from Nrsg): No Assessment/Plan Assessment/Plan Stable, POD #5, s/p right anterior DOREEN -pain meds prn -ASA/SCDs -OOB with PT -dressing changed -transfer to SNF today Subjective 24 Hr Interval Summary No acute overnight events. Discharged yesterday but no bed availability. VSS, afebrile. Exam/Review of Systems Vital Signs Vitals Vital Signs Date Time Temp Pulse Resp B/P Pulse Ox O2 Delivery O2 Flow Rate FiO2 07/06/17 13:04 98.4 66 18 103/56 96 07/03/17 02:03 Room Air Intake and Output 07/05/17 07/05/17 07/06/17 15:00 23:00 07:00 Intake Total 680 ml 960 ml Balance 680 ml 960 ml Exam Free Text/Dictation Dressing dry Incision clean, dry, and intact without redness or drainage 5/5 Quadriceps, Tibialis Anterior, EHL, Gastroc, Soleus, Peroneals Normal sensation Palpable DT/PT, CR <2 sec No distal edema Results Result Diagram: 07/06/1744907/06/17449 RANJANA MICHAUD PA-C Jul 06, 2017 10:59 Intake Total 680 ml 960 ml Balance 680 ml 960 ml Exam Free Text/Dictation Dressing dry Incision clean, dry, and intact without redness or drainage 5/5 Quadriceps, Tibialis Anterior, EHL, Gastroc, Soleus, Peroneals Normal sensation Palpable DT/PT, CR <2 sec No distal edema Results Result Diagram: 07/06/1744907/06/17449 RANJANA MICHAUD PA-C Jul 06, 2017 10:59
[2017-07-06 13:04] VITALS: BP 103/56; RESP 18
--- NOTE | 2017-07-06 13:11 | DS ---
Date/Time of Note Date/Time of Note DATE: 07/06/17 TIME: 13:04 Discharge Summary Admission/Discharge Info Admit Date/Time Jul 01, 2017 at 16:38 Discharge Date/Time Discharge Diagnosis 1. Osteo-arthritis status post right total hip replacement, stable, follow up with ortho 2. Anemia, acute loss, iron supplement, follow up with PCP Patient Condition: Stable Procedures Right total hip replacement Hospital Course This is a 62-year-old female, who was seen in the clinic initially complaining of right hip pain. X-rays demonstrated advanced osteoarthritis of the right hip , thought she would benefit from right anterior total hip arthroplasty. On 07/01, the patient was admitted and taken to the operating room, where she underwent a right anterior total hip arthroplasty. There were no intraoperative complications. The patient tolerated the procedure well. She was taken to the recovery room in stable condition. Pain was well-controlled oral pain medication. She was started on aspirin and SCDs for DVT prophylaxis. She remained hemodynamically stable and neurovascularly intact throughout her hospital stay. She began physical therapy on postoperative day 0, and continued to make good progress. Ultimately she was deemed stable for transfer to an [facility] on postoperative day 4. Prior to transfer, the incision was inspected and noted to be clean, dry, and intact. Dressing changes were done prior to patient being transferred. The patient will be transferred to an [facility] in stable condition. She is to resume a normal diet. She is weightbearing as tolerated on the right lower extremity. She will continue physical therapy twice daily at the [facility] facility. She will be discharged and transferred with a medication noted, and is to resume all of her normal home medication. The patient is to call the office or go to emergency room for any concerns including increased redness, swelling, drainage, fever, or any concerns regarding the operation or site of incision. H/H are 8.7/26.9 that has been stable after the surgery. She will be on oral iron supplement. Home Meds Active Scripts Pantoprazole* (Pantoprazole*) 40 Mg Tablet.dr, 40 MG PO DAILY for 40 Days, #40 Prov:RANJANA MICHAUD PA-C 07/04/17 Tramadol HCl (Tramadol HCl) 50 Mg Tablet, 50 MG PO Q6 for 30 Days, #60 TAB Prov:RANJANA MICHAUD PA-C 07/04/17 Hydrocodone Bit-Acetaminophen (Hydrocodone Bit-APAP) 5-325MG Tablet, 1 TAB PO Q4H Y for PAIN LEVEL 1-3 for 30 Days, #60 TAB Prov:RANJANA MICHAUD PA-C 07/04/17 Aspirin (Aspir-Cheryle) 325 Mg Tablet., 325 MG PO BID for 40 Days, #80 Prov:RANJANA MICHAUD PA-C 07/04/17 Reported Medications Bisacodyl (Dulcolax) 10 Mg Supp.rect, 10 MG RC, SUPP.RECT 07/01/17 Vit D3 & K/Berberine Hcl/Hops (Ostera Tablet) 1 Each Tablet, 1 EACH PO, TAB 07/01/17 Sertraline HCl (Zoloft) 20 Mg/1 Ml Oral.conc, 20 MG PO 07/01/17 [Zoloft] No Conflict Check 01/19/17 [Atorvastatin] No Conflict Check 01/19/17 Discontinued Reported Medications Oxycodone HCl/Acetaminophen (Percocet 2.5-325 mg Tablet) 1 Each Tablet, 1 EACH PO, TAB 07/01/17 Tramadol HCl (Tramadol HCl) 50 Mg Tablet, 50 MG PO Q6 Y for PAIN, #120 TAB 07/01/17 Discontinued Scripts Hydrocodone/Acetaminophen ([place] 5-325 Tablet) 1 Each Tablet, 1 EACH PO Q6 for PAIN LEVEL 6-10, #60 TAB Prov:RANJANA MICHAUD PA-C 01/20/17 Tramadol HCl (Tramadol HCl) 50 Mg Tablet, 50 MG PO Q6 for 30 Days, #60 TAB Prov:RANJANA MICHAUD PA-C 01/20/17 Pantoprazole* (Pantoprazole*) 40 Mg Tablet., 40 MG PO BID@06,18 for 40 Days, # 40 Prov:RANJANA MICHAUD PA-C 01/20/17 Aspirin (Aspir-Cheryle) 325 Mg Tablet., 325 MG PO BID for 42 Days, #84 Prov:RANJANA MICHAUD PA-C 01/20/17 Follow-up Plan Ortho and PCP in one week Primary Care Provider Tera Hunt Pending Labs Laboratory Tests Test 07/06/17 04:50 Hemoglobin 8.7g/dl (12.0-16.0) Hematocrit 26.9% (37.0-47.0) Sodium Level 138mmol/L (135-144) Potassium Level 4.2mmol/L (3.5-5.1) Chloride Level 104mmol/L (97-110) Carbon Dioxide Level 28mmol/L (21-31) Anion Gap 10 (8-16) Blood Urea Nitrogen 11mg/dl (7-20) Creatinine 0.89mg/dl (0.44-1.00) Glucose Level 115mg/dl (70-220) Calcium Level 8.6mg/dl (8.4-10.2) FARHAN HODGE MD Jul 06, 2017 13:11
== END 2017-07-06 19:26 | DRG 470 ==
LOC: SUR 07:11 → EDSTATUS 10:30 → MS1 16:38
PROVIDERS: ADMIT Orthopaedic Surgery; ATTEND Orthopaedic Surgery
PROC: 0SR904A Replacement of Right Hip Joint with Ceramic on Polyethylene Synthetic Substitute, Uncemented, Open Approach (ICD-10-PCS; principal; 2017-07-01 10:30)
DX: M16.11 Unilateral primary osteoarthritis, right hip (principal); F20.9 Schizophrenia, unspecified; D62 Acute posthemorrhagic anemia; G40.909 Epilepsy, unspecified, not intractable, without status epilepticus; Z79.82 Long term (current) use of aspirin
CPT/HCPCS: 72170; 73500; 73530; 80048; 81003; 82728; 83036; 83540; 83735; 84100; 85014; 85018; 85025; 86850; 86900; 86901; 86920; 87081; 87086; 88304; 97110; 97116; 97162; 97166; 97530; C1776; J0690; J1100; J1170; J2175; J2250; J2370; J2405; J2710; J3010; J3370; J7120

== ENCOUNTER → 2017-07-12 | Outpatient (CLI) | payer OTHER ==
[~2017-07-12] MED LIST changes: +BISA10SU55 RC; -BUPIVACAINE LIPOSOME/PF 266 MG/20 ML VIAL INFIL SCH; -CEFAZOLIN 2GM/50 ML (PMX) 50 ML X1 BEFORE INCISION IVPB SCH; -CELECOXIB 400 MG PO X1 DOSE PO SCH; -EXPAREL NOTE (BUPIVICAINE LIPOSOMAL) XX SCH; +HYDR-3498 PO; -HYDR-906 PO; -LACTATED RINGER'S 1,000 ML IV SCH; -PAIN COCKTAIL-CEFUROXIME IRR SCH; -PREGABALIN 300 MG PO X1 PO SCH; +SERT20OR PO; -TRANEXAMIC ACID 770 MG in SOD CHLORIDE 0.9% 100 ML IVPB SCH; -TRANEXAMIC ACID 770 MG in SOD CHLORIDE 0.9% 92.3 ML IV SCH; +VIT1TABL65 PO; -oxyCODONE (CR) 10 MG TAB [oxyCONTIN] X1 DOSE PO SCH; -traMADOL 50 MG TAB X 1 DOSE PO SCH
--- NOTE | 2017-07-12 12:01 | PN ---
Date/Time of Note Date/Time of Note DATE: 07/12/17 TIME: 11:58 Outpatient Progress Note MATHEW Jaime presents today for her first postoperative evaluation on her right hip. She is 10 days status post right anterior total hip arthroplasty. She is doing very well overall. She denies any fevers chills pus or drainage. She is happy with the results of her hip so far. She has not begun physical therapy at this point yet. She is taking aspirin twice daily for DVT prophylaxis. She presents today for her first postoperative evaluation. Physical Exam On exam today, she is alert and oriented 4, and in no acute distress. She walks with a slight antalgic gait. She is using a front wheel walker. Exam of her incision demonstrates it to be clean, dry, and intact. Aniya are in place. There is no erythema, pus, warmth, or drainage noted. Her leg lengths are equal. She has no pain with passive range of motion of the right hip joint. Compartments are soft. Homans sign is negative. She is neurovascularly intact distally. Imaging: X-rays of the right hip were obtained today and reviewed by me. They demonstrate the prosthesis to be in good alignment with no fractures or dislocations identified. Allergies Coded Allergies: divalproex sodium (Verified Allergy, Unknown, 07/01/17) haloperidol (Verified Allergy, Unknown, 07/01/17) phenobarbital (Verified Allergy, Unknown, 07/01/17) Assessment/Plan Assessment: 10 days status post right anterior total hip arthroplasty Plan: The aniya removed today, and Steri-Strips were applied. She is to continue using a front wheel walker and transition to a cane as tolerated. She should begin physical therapy with home health. Additionally she is to continue aspirin 325 mg twice daily for DVT prophylaxis. She will follow-up with Dr Paulino at [facility] in 4 weeks. Medications Home Meds Active Scripts Pantoprazole* (Pantoprazole*) 40 Mg Tablet., 40 MG PO DAILY for 40 Days, #40 Prov:RANJANA MICHAUD PA-C 07/04/17 Tramadol HCl (Tramadol HCl) 50 Mg Tablet, 50 MG PO Q6 for 30 Days, #60 TAB Prov:RANJANA MICHAUD PA-C 07/04/17 Hydrocodone Bit-Acetaminophen (Hydrocodone Bit-APAP) 5-325MG Tablet, 1 TAB PO Q4H Y for PAIN LEVEL 1-3 for 30 Days, #60 TAB Prov:RANJANA MICHAUD PA-C 07/04/17 Aspirin (Aspir-Cheryle) 325 Mg Tablet.dr, 325 MG PO BID for 40 Days, #80 Prov:RANJANA MICHAUD PA-C 07/04/17 Reported Medications Bisacodyl (Dulcolax) 10 Mg Supp.rect, 10 MG RC, SUPP.RECT 07/01/17 Vit D3 & K/Berberine Hcl/Hops (Ostera Tablet) 1 Each Tablet, 1 EACH PO, TAB 07/01/17 Sertraline HCl (Zoloft) 20 Mg/1 Ml Oral.conc, 20 MG PO 07/01/17 [Zoloft] No Conflict Check 01/19/17 [Atorvastatin] No Conflict Check 01/19/17 RANJANA MICHAUD PA-C Jul 12, 2017 12:01
--- NOTE | 2017-07-12 13:37 | RADRPT ---
PROCEDURE: XR Right hip and pelvis. CLINICAL INDICATION: Right hip pain. Pelvic pain. TECHNIQUE: Two views. Frontal pelvis and Frontal frontal right hip. COMPARISON: 01/19/2017. FINDINGS: There are bilateral total hip arthroplasties. These appear satisfactory with no fracture, dislocati on, or loosening. Skin alex have been removed. The sacroiliac joints are unremarkable. There are degenerative changes of the lower lumbar spine. There is no lytic or blastic lesion. IMPRESSION: 1. Satisfactory postoperative appearance of both hips. 2. Degenerative changes of the lower lumbar spine. RPTAT: QQ .Donavan Uriostegui MD, MD Date Time Electronically viewed and signed by .Donavan Uriostegui MD, MD on 07/12/2017 13:36 .R/
== END | disposition home or self-care (01) ==
LOC: HKI 11:45
PROVIDERS: ATTEND Orthopaedic Surgery
DX: Z47.1 Aftercare following joint replacement surgery (principal); Z96.641 Presence of right artificial hip joint
CPT/HCPCS: 73502

== ENCOUNTER → 2018-03-08 | Outpatient (CLI) | END | disposition home or self-care (01) ==